=== PATIENT | male | born 1955 | race Two or more races ===

== ENCOUNTER 2017-04-09 12:21 | Inpatient (IN) | payer OTHER ==
[2017-04-09 13:51] VITALS: BMI 25.0
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
[2017-04-09] MEDS ORDERED: MENTHOL/PHENOL 1 EACH UD MM PRN (18:56)
[2017-04-09] MEDS ORDERED: MAGNESIUM HYDROX 2400MG/30ML ORAL SUSPENSION 30 ML CUP PO PRN (18:56)
[2017-04-09] MEDS ORDERED: diphenhydrAMINE HCL 50 MG CAPSULE PO PRN (18:56)
[2017-04-09] MEDS ORDERED: guaiFENesin/D-METHORPHAN HB 10 ML UNIT-DOSE CUPS PO PRN (18:56)
[2017-04-09] MEDS ORDERED: chlordiazePOXIDE HCL 25 MG CAPSULE PO PRN (18:56)
[2017-04-09] MEDS ORDERED: MAG HYDROX/AL HYDROX/SIMETH 30 ML UNIT-DOSE CUP PO PRN (18:56)
[2017-04-09] MEDS ORDERED: NICOTINE POLACRILEX 2 MG GUM BC PRN (18:56)
[2017-04-09] MEDS ORDERED: MAGNESIUM CITRATE 300 ML BOTTLE PO PRN (18:56)
[2017-04-09] MEDS ORDERED: P-EPHED 60MG/TRIPROLIDI 2.5MG TABLET PO PRN (18:56)
[2017-04-09] MEDS ORDERED: hydrOXYzine PAMOATE 50 MG CAPSULE (FP) PO PRN (18:56)
[2017-04-09] MEDS ORDERED: LOPERAMIDE HCL 2 MG CAPSULE PO PRN (18:56)
[2017-04-09] MEDS ORDERED: chlordiazePOXIDE HCL 25 MG CAPSULE PO ONE (18:56)
[2017-04-09] MEDS ORDERED: IBUPROFEN 400 MG TABLET (FP) PO PRN (18:56)
[2017-04-09] MEDS ORDERED: ACETAMINOPHEN 325 MG TABLET (FP) PO PRN (18:56)
[2017-04-09] MEDS ORDERED: ALBUTEROL SO4 18 GM HFA INHALER IH PRN (19:00)
[2017-04-09] MEDS ORDERED: TETRAHYDROZOLINE HCL 1 DROP DROPS OU PRN (19:01)
[2017-04-09] MEDS: NICOTINE 14 MG/24 HOURS TOPICAL PATCH TD SCH (20:05)
[2017-04-09] MEDS: chlordiazePOXIDE HCL 25 MG CAPSULE PO SCH (22:14)
[2017-04-09] MEDS: BACITRACIN 0.9 GM PACKET TP SCH (22:14)
[2017-04-09] MEDS: THIAMINE HCL 100 MG TABLET (FP) PO SCH (22:14)
[2017-04-10 00:05] LABS: URINE APPEARANCE SLCLOUDY; URINE BILIRUBIN NEGATIVE (NEGATIVE); URINE BLOOD NEGATIVE (NEGATIVE); URINE COLOR YELLOW; URINE GLUCOSE (UA) NEGATIVE (NEGATIVE); URINE KETONE NEGATIVE (NEGATIVE); URINE NITRITE NEGATIVE (NEGATIVE); URINE PROTEIN NEGATIVE (NEGATIVE); URINE UROBILINOGEN NEGATIVE mg/dL (0.2-1.0)
[2017-04-10] MEDS: chlordiazePOXIDE HCL 25 MG CAPSULE PO SCH ×4 (05:42→22:25)
[2017-04-10] MEDS: PRENATAL VITAMINS W/ FOLIC ACID TABLET (FP) PO SCH (10:15)
[2017-04-10] MEDS: BACITRACIN 0.9 GM PACKET TP SCH ×2 (10:15→22:25)
[2017-04-10] MEDS: NICOTINE 14 MG/24 HOURS TOPICAL PATCH TD SCH (10:17)
[2017-04-10 10:21] LABS: MCH 30.1 pg (25.7-33.7); MCHC 32.9 g/dl (32.0-35.9); MEAN CELL VOLUME 91.3 fl (80-96); MEAN PLT VOLUME 8.8 fl (7.5-11.1); PLATELET COUNT 158 K/MM3 (134-434); RDW 14.8 % (11.9-15.9); WHITE BLOOD COUNT 4.5 K/mm3 (4.0-10.0)
[2017-04-10 10:33] LABS: ALBUMIN 2.9 g/dl (3.4-5.0); ANION GAP 7 (8-16); CALCIUM 8.3 mg/dL (8.5-10.1); CO2 29 mmol/L (21-32); GLUCOSE,RANDOM 92 mg/dL (74-106); SGPT/ALT 28 U/L (12-78)
[2017-04-10 10:35] LABS: ALK PHOS 60 U/L (45-117); BILIRUBIN,TOTAL 0.4 mg/dL (0.2-1.0); SGOT/AST 24 U/L (15-37); TOT PROT 6.1 g/dl (6.4-8.2)
[2017-04-10 11:50] LABS: URINE LEUK ESTERASE Negative (NEGATIVE)
[2017-04-10] MEDS ORDERED: FLU VACCINE QUAD 60 MCG/0.5 ML (MDV 17-18) IM ONE (12:00)
[2017-04-10 12:38] LABS: HIV 1 & 2 AB NEGATIVE; HIV 1 AGp24 NEGATIVE
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
--- NOTE | 2017-04-10 14:53 | PN ---
[facility] CIWA - CIWA Score Nausea/Vomitin-No Nausea/No Vomiting Muscle Tremors: 3 Anxiety: 5 Agitation: 4-Moderately Restless Paroxysmal Sweats: No Perspiration Orientation: 0-Oriented Tacttile Disturbances: 3-Moderate Itch/Numb/Burn Auditory Disturbances: 2-Mild Harshness/Frighten Visual Disturbances: 0-None Headache: 0-None Present CIWA-Ar Total Score: 17 BHS Progress Note (SOAP) Subjective: Anxious, Interrupted sleep, Tremors. Objective: PT. A & O X 3, OBSERVED AMBULATING ON UNIT. NO ACUTE DISTRESS. PT. DENIES CHEST PAIN. 04/10/17 14:52 Vital Signs Temperature 98.4 F 04/10/17 09:30 Pulse Rate 111 H 04/10/17 09:30 Respiratory Rate 18 04/10/17 09:30 Blood Pressure 144/92 04/10/17 09:30 O2 Sat by Pulse Oximetry (%) Laboratory Tests 04/09/17 04/10/17 04/10/17 23:20 08:00 08:00 WBC 4.5 RBC 4.61 Hgb 13.9 Hct 42.1 MCV 91.3 MCH 30.1 MCHC 32.9 RDW 14.8 Plt Count 158 MPV 8.8 Sodium Potassium Chloride Carbon Dioxide Anion Gap BUN Creatinine Creat Clearance w eGFR Random Glucose Calcium Total Bilirubin AST ALT Alkaline Phosphatase Total Protein Albumin Urine Color Yellow Urine Appearance Slcloudy Urine pH 5.0 Ur Specific [place] 1.025 Urine Protein Negative Urine Glucose (UA) Negative Urine Ketones Negative Urine Blood Negative Urine Nitrite Negative Urine Bilirubin Negative Urine Urobilinogen Negative Ur Leukocyte Esterase Negative RPR Titer HIV 1&2 Antibody Screen Negative HIV P24 Antigen Negative 04/10/17 04/10/17 08:00 08:00 WBC RBC Hgb Hct MCV MCH MCHC RDW Plt Count MPV Sodium 144 Potassium 3.6 Chloride 108 H Carbon Dioxide 29 Anion Gap 7 L BUN 9 Creatinine 1.0 Creat Clearance w eGFR > 60 Random Glucose 92 Calcium 8.3 L Total Bilirubin 0.4 AST 24 ALT 28 Alkaline Phosphatase 60 Total Protein 6.1 L Albumin 2.9 L Urine Color Urine Appearance Urine pH Ur Specific [place] Urine Protein Urine Glucose (UA) Urine Ketones Urine Blood Urine Nitrite Urine Bilirubin Urine Urobilinogen Ur Leukocyte Esterase RPR Titer Nonreactive HIV 1&2 Antibody Screen HIV P24 Antigen LABS NOTED. HCV AB RESULT PENDING. 04/10/17 14:53 Assessment: 04/10/17 14:52 WITHDRAWAL SYMPTOMS. Plan: CONTINUE DETOX.
--- NOTE | 2017-04-10 19:52 | EKG ---
Test Reason : Blood Pressure : / mmHG Vent. Rate : 059 BPM Atrial Rate : 059 BPM P-R Int : 128 ms QRS Dur : 080 ms QT Int : 438 ms P-R-T Axes : 035 029 038 degrees QTc Int : 433 ms SINUS BRADYCARDIA MINIMAL VOLTAGE CRITERIA FOR LVH, MAY BE NORMAL VARIANT SEPTAL INFARCT , AGE UNDETERMINED ABNORMAL ECG NO PREVIOUS ECGS AVAILABLE REPEAT EKG IF CLINICALLY INDICATED Confirmed by KARMEN APPIAH MD ([id number]) on 04/10/2017 7:52:03 PM Referred By: Confirmed By:KARMEN APPIAH MD
[2017-04-10] MEDS: THIAMINE HCL 100 MG TABLET (FP) PO SCH (22:28)
[2017-04-11] MEDS: chlordiazePOXIDE HCL 25 MG CAPSULE PO SCH ×3 (05:31→17:32)
[2017-04-11] MEDS: PRENATAL VITAMINS W/ FOLIC ACID TABLET (FP) PO SCH (10:11)
[2017-04-11] MEDS: BACITRACIN 0.9 GM PACKET TP SCH ×2 (10:12→22:10)
[2017-04-11] MEDS: NICOTINE 14 MG/24 HOURS TOPICAL PATCH TD SCH (10:12)
--- NOTE | 2017-04-11 16:44 | PN ---
[facility] CIWA - CIWA Score Nausea/Vomitin-No Nausea/No Vomiting Muscle Tremors: 3 Anxiety: 4-Mod. Anxious/Guarded Agitation: 3 Paroxysmal Sweats: 3 Orientation: 0-Oriented Tacttile Disturbances: 0-None Auditory Disturbances: 0-None Visual Disturbances: 0-None Headache: 0-None Present CIWA-Ar Total Score: 13 S Progress Note (SOAP) Subjective: anxiety,tremors,sweating,interrupted sleep,restless. Objective: 04/11/17 16:43 Vital Signs - 8 hr 04/11/17 04/11/17 09:16 13:15 Temperature 95.8 F L 97.8 F Pulse Rate 92 H 57 L Respiratory 20 18 Rate Blood Pressure 130/72 136/83 Laboratory Last Values WBC 4.5 K/mm3 (4.0-10.0) 04/10/17 08:00 RBC 4.61 M/mm3 (4.00-5.60) 04/10/17 08:00 Hgb 13.9 GM/dL (11.7-16.9) 04/10/17 08:00 Hct 42.1 % (35.4-49) 04/10/17 08:00 MCV 91.3 fl (80-96) 04/10/17 08:00 MCH 30.1 pg (25.7-33.7) 04/10/17 08:00 MCHC 32.9 g/dl (32.0-35.9) 04/10/17 08:00 RDW 14.8 % (11.9-15.9) 04/10/17 08:00 Plt Count 158 K/MM3 (134-434) 04/10/17 08:00 MPV 8.8 fl (7.5-11.1) 04/10/17 08:00 Sodium 144 mmol/L (136-145) 04/10/17 08:00 Potassium 3.6 mmol/L (3.5-5.1) 04/10/17 08:00 Chloride 108 mmol/L (98-107) H 04/10/17 08:00 Carbon Dioxide 29 mmol/L (21-32) 04/10/17 08:00 Anion Gap 7 (8-16) L 04/10/17 08:00 BUN 9 mg/dL (7-18) 04/10/17 08:00 Creatinine 1.0 mg/dL (0.7-1.3) 04/10/17 08:00 Creat Clearance w eGFR > 60 (>60) 04/10/17 08:00 Random Glucose 92 mg/dL (74-106) 04/10/17 08:00 Calcium 8.3 mg/dL (8.5-10.1) L 04/10/17 08:00 Total Bilirubin 0.4 mg/dL (0.2-1.0) 04/10/17 08:00 AST 24 U/L (15-37) 04/10/17 08:00 ALT 28 U/L (12-78) 04/10/17 08:00 Alkaline Phosphatase 60 U/L (45-117) 04/10/17 08:00 Total Protein 6.1 g/dl (6.4-8.2) L 04/10/17 08:00 Albumin 2.9 g/dl (3.4-5.0) L 04/10/17 08:00 Urine Color Yellow 04/09/17 23:20 Urine Appearance Slcloudy 04/09/17 23:20 Urine pH 5.0 (5.0-8.0) 04/09/17 23:20 Ur Specific [place] 1.025 (1.005-1.025) 04/09/17 23:20 Urine Protein Negative (NEGATIVE) 04/09/17 23:20 Urine Glucose (UA) Negative (NEGATIVE) 04/09/17 23:20 Urine Ketones Negative (NEGATIVE) 04/09/17 23:20 Urine Blood Negative (NEGATIVE) 04/09/17 23:20 Urine Nitrite Negative (NEGATIVE) 04/09/17 23:20 Urine Bilirubin Negative (NEGATIVE) 04/09/17 23:20 Urine Urobilinogen Negative mg/dL (0.2-1.0) 04/09/17 23:20 Ur Leukocyte Esterase Negative (NEGATIVE) 04/09/17 23:20 RPR Titer Nonreactive (NONREACTIVE) 04/10/17 08:00 Hepatitis C Antibody <0.1 s/co ratio (0.0-0.9) 04/10/17 08:00 HIV 1&2 Antibody Screen Negative 04/10/17 08:00 HIV P24 Antigen Negative 04/10/17 08:00 labs noted Assessment: 04/11/17 16:43 Withdrawal sx. Plan: Continue detox
[2017-04-11] MEDS: THIAMINE HCL 100 MG TABLET (FP) PO SCH (22:10)
[2017-04-11] MEDS: chlordiazePOXIDE 5 MG CAPSULE PO SCH (22:10)
[2017-04-12] MEDS: chlordiazePOXIDE 5 MG CAPSULE PO SCH ×3 (05:55→17:31)
--- NOTE | 2017-04-12 09:58 | PN ---
BHS Progress Note (SOAP) Subjective: nausea, sweats, interrupted sleep, anxiety, tremors Objective: 04/12/17 09:57 Vital Signs - 24 hr 04/11/17 04/11/17 04/11/17 13:15 17:35 21:46 Temperature 97.8 F 98.5 F Pulse Rate 57 L 82 87 Respiratory 18 16 20 Rate Blood Pressure 136/83 150/90 114/72 04/12/17 04/12/17 04/12/17 00:52 03:30 06:18 Temperature 97.2 F L Pulse Rate 99 H Respiratory 18 18 8 L Rate Blood Pressure 135/83 Vital Signs - 24 hr 04/11/17 04/11/17 04/11/17 13:15 17:35 21:46 Temperature 97.8 F 98.5 F Pulse Rate 57 L 82 87 Respiratory 18 16 20 Rate Blood Pressure 136/83 150/90 114/72 04/12/17 04/12/17 04/12/17 00:52 03:30 06:18 Temperature 97.2 F L Pulse Rate 99 H Respiratory 18 18 8 L Rate Blood Pressure 135/83 Laboratory Tests 04/09/17 04/10/17 04/10/17 23:20 08:00 08:00 WBC 4.5 RBC 4.61 Hgb 13.9 Hct 42.1 MCV 91.3 MCH 30.1 MCHC 32.9 RDW 14.8 Plt Count 158 MPV 8.8 Sodium Potassium Chloride Carbon Dioxide Anion Gap BUN Creatinine Creat Clearance w eGFR Random Glucose Calcium Total Bilirubin AST ALT Alkaline Phosphatase Total Protein Albumin Urine Color Yellow Urine Appearance Slcloudy Urine pH 5.0 Ur Specific [place] 1.025 Urine Protein Negative Urine Glucose (UA) Negative Urine Ketones Negative Urine Blood Negative Urine Nitrite Negative Urine Bilirubin Negative Urine Urobilinogen Negative Ur Leukocyte Esterase Negative RPR Titer Hepatitis C Antibody HIV 1&2 Antibody Screen Negative HIV P24 Antigen Negative 04/10/17 04/10/17 04/10/17 08:00 08:00 08:00 WBC RBC Hgb Hct MCV MCH MCHC RDW Plt Count MPV Sodium 144 Potassium 3.6 Chloride 108 H Carbon Dioxide 29 Anion Gap 7 L BUN 9 Creatinine 1.0 Creat Clearance w eGFR > 60 Random Glucose 92 Calcium 8.3 L Total Bilirubin 0.4 AST 24 ALT 28 Alkaline Phosphatase 60 Total Protein 6.1 L Albumin 2.9 L Urine Color Urine Appearance Urine pH Ur Specific [place] Urine Protein Urine Glucose (UA) Urine Ketones Urine Blood Urine Nitrite Urine Bilirubin Urine Urobilinogen Ur Leukocyte Esterase RPR Titer Nonreactive Hepatitis C Antibody <0.1 HIV 1&2 Antibody Screen HIV P24 Antigen Assessment: 04/12/17 09:57 withdrawal sx Plan: cont detox, fluids, encourage ambulation
[2017-04-12] MEDS: PRENATAL VITAMINS W/ FOLIC ACID TABLET (FP) PO SCH (10:05)
[2017-04-12] MEDS: BACITRACIN 0.9 GM PACKET TP SCH ×2 (10:07→22:09)
[2017-04-12] MEDS: NICOTINE 14 MG/24 HOURS TOPICAL PATCH TD SCH (10:07)
[2017-04-12] MEDS: THIAMINE HCL 100 MG TABLET (FP) PO SCH (22:09)
[2017-04-12] MEDS: chlordiazePOXIDE HCL 10 MG CAPSULE PO SCH (22:09)
[2017-04-13] MEDS: chlordiazePOXIDE HCL 10 MG CAPSULE PO SCH ×2 (06:05→10:32)
[2017-04-13 09:54] VITALS: BP 130/72; PULSE 67; TEMP 96.8
--- NOTE | 2017-04-13 10:18 | DS ---
[facility] Detox Discharge Summary Admission Date: 04/09/17 Discharge Date: 04/13/17 - History Present History: Alcohol Dependence, Cocaine Dependence Additional Comments: PT COMPLETED DETOX. ALERT O X 3. NAD. Pertinent Past History: HTN HX HSV INFECTION - Physical Exam Results Vital Signs: Vital Signs Temperature 96.8 F L 04/13/17 09:52 Pulse Rate 67 04/13/17 09:52 Respiratory Rate 18 04/13/17 09:52 Blood Pressure 130/72 04/13/17 09:52 O2 Sat by Pulse Oximetry (%) Pertinent Admission Physical Exam Findings: WITHDRAWAL SX Laboratory Last Values WBC 4.5 K/mm3 (4.0-10.0) 04/10/17 08:00 RBC 4.61 M/mm3 (4.00-5.60) 04/10/17 08:00 Hgb 13.9 GM/dL (11.7-16.9) 04/10/17 08:00 Hct 42.1 % (35.4-49) 04/10/17 08:00 MCV 91.3 fl (80-96) 04/10/17 08:00 MCH 30.1 pg (25.7-33.7) 04/10/17 08:00 MCHC 32.9 g/dl (32.0-35.9) 04/10/17 08:00 RDW 14.8 % (11.9-15.9) 04/10/17 08:00 Plt Count 158 K/MM3 (134-434) 04/10/17 08:00 MPV 8.8 fl (7.5-11.1) 04/10/17 08:00 Sodium 144 mmol/L (136-145) 04/10/17 08:00 Potassium 3.6 mmol/L (3.5-5.1) 04/10/17 08:00 Chloride 108 mmol/L (98-107) H 04/10/17 08:00 Carbon Dioxide 29 mmol/L (21-32) 04/10/17 08:00 Anion Gap 7 (8-16) L 04/10/17 08:00 BUN 9 mg/dL (7-18) 04/10/17 08:00 Creatinine 1.0 mg/dL (0.7-1.3) 04/10/17 08:00 Creat Clearance w eGFR > 60 (>60) 04/10/17 08:00 Random Glucose 92 mg/dL (74-106) 04/10/17 08:00 Calcium 8.3 mg/dL (8.5-10.1) L 04/10/17 08:00 Total Bilirubin 0.4 mg/dL (0.2-1.0) 04/10/17 08:00 AST 24 U/L (15-37) 04/10/17 08:00 ALT 28 U/L (12-78) 04/10/17 08:00 Alkaline Phosphatase 60 U/L (45-117) 04/10/17 08:00 Total Protein 6.1 g/dl (6.4-8.2) L 04/10/17 08:00 Albumin 2.9 g/dl (3.4-5.0) L 04/10/17 08:00 Urine Color Yellow 04/09/17 23:20 Urine Appearance Slcloudy 04/09/17 23:20 Urine pH 5.0 (5.0-8.0) 04/09/17 23:20 Ur Specific [place] 1.025 (1.005-1.025) 04/09/17 23:20 Urine Protein Negative (NEGATIVE) 04/09/17 23:20 Urine Glucose (UA) Negative (NEGATIVE) 04/09/17 23:20 Urine Ketones Negative (NEGATIVE) 04/09/17 23:20 Urine Blood Negative (NEGATIVE) 04/09/17 23:20 Urine Nitrite Negative (NEGATIVE) 04/09/17 23:20 Urine Bilirubin Negative (NEGATIVE) 04/09/17 23:20 Urine Urobilinogen Negative mg/dL (0.2-1.0) 04/09/17 23:20 Ur Leukocyte Esterase Negative (NEGATIVE) 04/09/17 23:20 RPR Titer Nonreactive (NONREACTIVE) 04/10/17 08:00 Hepatitis C Antibody <0.1 s/co ratio (0.0-0.9) 04/10/17 08:00 HIV 1&2 Antibody Screen Negative 04/10/17 08:00 HIV P24 Antigen Negative 04/10/17 08:00 - Treatment Hospital Course: Detox Protocol Followed, Detoxed Safely, Responded well, Discharged Condition Good, Rehab Referral Accepted Patient has Accepted a Rehab Referral to: [facility] - Medication Discharge Medications: Ambulatory Orders Valacyclovir HCl [Valtrex -] 500 mg PO BID 04/09/17 - AMA Did Patient Leave Against Medical Advice: No
[2017-04-13] MEDS: NICOTINE 14 MG/24 HOURS TOPICAL PATCH TD SCH (10:32)
[2017-04-13] MEDS: PRENATAL VITAMINS W/ FOLIC ACID TABLET (FP) PO SCH (10:32)
[2017-04-13] MEDS: BACITRACIN 0.9 GM PACKET TP SCH (10:32)
== END 2017-04-13 13:26 | disposition other institution (70) | DRG 774 ==
LOC: YASAS 12:21 → Y3N 16:52
PROVIDERS: ADMIT Internal Medicine; ATTEND Internal Medicine
PROC: HZ2ZZZZ Detoxification Services for Substance Abuse Treatment (ICD-10-PCS; principal; 2017-04-09)
DX: F10.230 Alcohol dependence with withdrawal, uncomplicated (principal); F14.20 Cocaine dependence, uncomplicated; F17.210 Nicotine dependence, cigarettes, uncomplicated; F19.24 Other psychoactive substance dependence with psychoactive substance-induced mood disorder; F43.10 Post-traumatic stress disorder, unspecified; J44.9 Chronic obstructive pulmonary disease, unspecified; I10 Essential (primary) hypertension; B00.1 Herpesviral vesicular dermatitis; D57.3 Sickle-cell trait; Z91.14 Patient's other noncompliance with medication regimen; B18.2 Chronic viral hepatitis C
CPT/HCPCS: 36415; 80053; 81003; 85027; 86593; 86803; 87389; 93005; 93010

== ENCOUNTER 2017-04-13 12:28 | Inpatient (IN) | payer OTHER ==
[2017-04-13] MEDS ORDERED: hydrOXYzine PAMOATE 50 MG CAPSULE (FP) PO PRN (14:44)
[2017-04-13] MEDS ORDERED: guaiFENesin/D-METHORPHAN HB 10 ML UNIT-DOSE CUPS PO PRN (14:44)
[2017-04-13] MEDS ORDERED: LOPERAMIDE HCL 2 MG CAPSULE PO PRN (14:44)
[2017-04-13] MEDS ORDERED: MAGNESIUM CITRATE 300 ML BOTTLE PO PRN (14:44)
[2017-04-13] MEDS ORDERED: NICOTINE POLACRILEX 2 MG GUM BUC PRN (14:44)
[2017-04-13] MEDS ORDERED: MENTHOL/PHENOL 1 EACH UD MM PRN (14:44)
[2017-04-13] MEDS ORDERED: P-EPHED 60MG/TRIPROLIDI 2.5MG TABLET PO PRN (14:44)
[2017-04-13] MEDS ORDERED: MAG HYDROX/AL HYDROX/SIMETH 30 ML UNIT-DOSE CUP PO PRN (14:44)
[2017-04-13] MEDS ORDERED: MAGNESIUM HYDROX 2400MG/30ML ORAL SUSPENSION 30 ML CUP PO PRN (14:44)
--- NOTE | 2017-04-13 14:49 | HP ---
[facility] Rehab Assess/Revision - Admission History Admitted to Rehab from: [facility] [place] Date of Admission to Rehab: 04/13/2017 - Vital signs Vital Signs: Vital Signs Period Temp Pulse Resp BP Sys/Mccarthy Pulse Ox Last 24 Hr 97.8 F 60 18 124/77 - Findings Detox History & Physical reviewed: Yes Concur with findings: Yes Inpatient Rehab Admission - Initial Determination Are CD services needed?: Yes Free of communicable disease: Yes Not in need of hospitalization: Yes - Rehab Admission Criteria Comorbidities: Yes Patient is meeting Inpatient Rehab admission criteria:: Yes
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
[2017-04-13] MEDS: valACYclovir HCL 500 MG TABLET (FP) PO SCH (21:42)
[2017-04-13] MEDS: THIAMINE HCL 100 MG TABLET (FP) PO SCH (21:42)
[2017-04-13] MEDS: traZODone HCL 50 MG TABLET (FP) PO SCH (21:42)
[2017-04-13] MEDS: BENZTROPINE MESYLATE 1 MG TABLET (FP) PO SCH (21:42)
[2017-04-13] MEDS: risperiDONE 1 MG TABLET (FP) PO SCH (21:42)
[2017-04-13] MEDS: diphenhydrAMINE HCL 50 MG CAPSULE PO PRN (21:42)
[2017-04-14] MEDS: valACYclovir HCL 500 MG TABLET (FP) PO SCH ×2 (10:31→21:24)
[2017-04-14] MEDS: PRENATAL VITAMINS W/ FOLIC ACID TABLET (FP) PO SCH (10:31)
[2017-04-14] MEDS: BENZTROPINE MESYLATE 1 MG TABLET (FP) PO SCH ×2 (10:31→21:23)
[2017-04-14] MEDS: risperiDONE 1 MG TABLET (FP) PO SCH ×2 (10:31→21:23)
[2017-04-14] MEDS: NICOTINE 14 MG/24 HOURS TOPICAL PATCH TD SCH (10:32)
[2017-04-14] MEDS: traZODone HCL 50 MG TABLET (FP) PO SCH (21:23)
[2017-04-14] MEDS: THIAMINE HCL 100 MG TABLET (FP) PO SCH (21:24)
[2017-04-15] MEDS: NICOTINE 14 MG/24 HOURS TOPICAL PATCH TD SCH (10:17)
[2017-04-15] MEDS: BENZTROPINE MESYLATE 1 MG TABLET (FP) PO SCH ×2 (10:17→21:23)
[2017-04-15] MEDS: risperiDONE 1 MG TABLET (FP) PO SCH ×2 (10:17→21:23)
[2017-04-15] MEDS: PRENATAL VITAMINS W/ FOLIC ACID TABLET (FP) PO SCH (10:17)
[2017-04-15] MEDS: valACYclovir HCL 500 MG TABLET (FP) PO SCH ×2 (10:17→21:24)
[2017-04-15] MEDS: THIAMINE HCL 100 MG TABLET (FP) PO SCH (21:23)
[2017-04-15] MEDS: traZODone HCL 50 MG TABLET (FP) PO SCH (21:23)
[2017-04-16] MEDS: NICOTINE 14 MG/24 HOURS TOPICAL PATCH TD SCH (10:15)
[2017-04-16] MEDS: valACYclovir HCL 500 MG TABLET (FP) PO SCH ×2 (10:15→21:32)
[2017-04-16] MEDS: risperiDONE 1 MG TABLET (FP) PO SCH ×2 (10:15→21:32)
[2017-04-16] MEDS: BENZTROPINE MESYLATE 1 MG TABLET (FP) PO SCH ×2 (10:15→21:32)
[2017-04-16] MEDS: PRENATAL VITAMINS W/ FOLIC ACID TABLET (FP) PO SCH (10:15)
[2017-04-16] MEDS: ACETAMINOPHEN 325 MG TABLET (FP) PO PRN (14:20)
[2017-04-16] MEDS: THIAMINE HCL 100 MG TABLET (FP) PO SCH (21:32)
[2017-04-16] MEDS: traZODone HCL 50 MG TABLET (FP) PO SCH (21:32)
[2017-04-16] MEDS: diphenhydrAMINE HCL 50 MG CAPSULE PO PRN (21:33)
[2017-04-17] MEDS: PRENATAL VITAMINS W/ FOLIC ACID TABLET (FP) PO SCH (10:40)
[2017-04-17] MEDS: BENZTROPINE MESYLATE 1 MG TABLET (FP) PO SCH ×2 (10:40→21:28)
[2017-04-17] MEDS: risperiDONE 1 MG TABLET (FP) PO SCH ×2 (10:40→21:28)
[2017-04-17] MEDS: NICOTINE 14 MG/24 HOURS TOPICAL PATCH TD SCH (10:40)
[2017-04-17] MEDS: valACYclovir HCL 500 MG TABLET (FP) PO SCH ×2 (10:40→21:28)
[2017-04-17] MEDS: traZODone HCL 50 MG TABLET (FP) PO SCH (21:28)
[2017-04-17] MEDS: THIAMINE HCL 100 MG TABLET (FP) PO SCH (21:28)
[2017-04-18] MEDS: risperiDONE 1 MG TABLET (FP) PO SCH ×2 (10:18→21:26)
[2017-04-18] MEDS: BENZTROPINE MESYLATE 1 MG TABLET (FP) PO SCH ×2 (10:18→21:26)
[2017-04-18] MEDS: PRENATAL VITAMINS W/ FOLIC ACID TABLET (FP) PO SCH (10:18)
[2017-04-18] MEDS: valACYclovir HCL 500 MG TABLET (FP) PO SCH ×2 (10:18→21:26)
[2017-04-18] MEDS: NICOTINE 14 MG/24 HOURS TOPICAL PATCH TD SCH (10:19)
[2017-04-18] MEDS: diphenhydrAMINE HCL 50 MG CAPSULE PO PRN (21:26)
[2017-04-18] MEDS: traZODone HCL 50 MG TABLET (FP) PO SCH (21:26)
[2017-04-18] MEDS: THIAMINE HCL 100 MG TABLET (FP) PO SCH (21:26)
[2017-04-19] MEDS: risperiDONE 1 MG TABLET (FP) PO SCH ×2 (10:05→21:34)
[2017-04-19] MEDS: PRENATAL VITAMINS W/ FOLIC ACID TABLET (FP) PO SCH (10:05)
[2017-04-19] MEDS: valACYclovir HCL 500 MG TABLET (FP) PO SCH ×2 (10:05→23:28)
[2017-04-19] MEDS: BENZTROPINE MESYLATE 1 MG TABLET (FP) PO SCH ×2 (10:05→21:34)
[2017-04-19] MEDS: NICOTINE 14 MG/24 HOURS TOPICAL PATCH TD SCH (10:05)
[2017-04-19] MEDS: THIAMINE HCL 100 MG TABLET (FP) PO SCH (21:34)
[2017-04-19] MEDS: traZODone HCL 50 MG TABLET (FP) PO SCH (21:36)
[2017-04-20] MEDS: ACETAMINOPHEN 325 MG TABLET (FP) PO PRN (06:54)
[2017-04-20] MEDS: NICOTINE 14 MG/24 HOURS TOPICAL PATCH TD SCH (09:46)
[2017-04-20] MEDS: risperiDONE 1 MG TABLET (FP) PO SCH ×2 (09:46→21:22)
[2017-04-20] MEDS: PRENATAL VITAMINS W/ FOLIC ACID TABLET (FP) PO SCH (09:46)
[2017-04-20] MEDS: valACYclovir HCL 500 MG TABLET (FP) PO SCH ×2 (09:46→21:22)
[2017-04-20] MEDS: BENZTROPINE MESYLATE 1 MG TABLET (FP) PO SCH ×2 (09:46→21:22)
[2017-04-20] MEDS: THIAMINE HCL 100 MG TABLET (FP) PO SCH (21:21)
[2017-04-20] MEDS: diphenhydrAMINE HCL 50 MG CAPSULE PO PRN (21:22)
[2017-04-20] MEDS: traZODone HCL 50 MG TABLET (FP) PO SCH (21:22)
[2017-04-21] MEDS: ACETAMINOPHEN 325 MG TABLET (FP) PO PRN (06:23)
[2017-04-21] MEDS: NICOTINE 14 MG/24 HOURS TOPICAL PATCH TD SCH (10:17)
[2017-04-21] MEDS: BENZTROPINE MESYLATE 1 MG TABLET (FP) PO SCH ×2 (10:17→21:24)
[2017-04-21] MEDS: valACYclovir HCL 500 MG TABLET (FP) PO SCH ×2 (10:17→21:24)
[2017-04-21] MEDS: PRENATAL VITAMINS W/ FOLIC ACID TABLET (FP) PO SCH (10:17)
[2017-04-21] MEDS: risperiDONE 1 MG TABLET (FP) PO SCH ×2 (10:17→21:24)
[2017-04-21] MEDS: IBUPROFEN 400 MG TABLET (FP) PO PRN (10:18)
[2017-04-21] MEDS: diphenhydrAMINE HCL 50 MG CAPSULE PO PRN (21:24)
[2017-04-21] MEDS: traZODone HCL 50 MG TABLET (FP) PO SCH (21:24)
[2017-04-21] MEDS: THIAMINE HCL 100 MG TABLET (FP) PO SCH (21:24)
[2017-04-22] MEDS: risperiDONE 1 MG TABLET (FP) PO SCH ×2 (09:51→21:33)
[2017-04-22] MEDS: PRENATAL VITAMINS W/ FOLIC ACID TABLET (FP) PO SCH (09:51)
[2017-04-22] MEDS: NICOTINE 14 MG/24 HOURS TOPICAL PATCH TD SCH (09:51)
[2017-04-22] MEDS: valACYclovir HCL 500 MG TABLET (FP) PO SCH ×2 (09:51→21:33)
[2017-04-22] MEDS: BENZTROPINE MESYLATE 1 MG TABLET (FP) PO SCH ×2 (09:51→21:33)
[2017-04-22] MEDS: ACETAMINOPHEN 325 MG TABLET (FP) PO PRN (14:10)
[2017-04-22] MEDS: THIAMINE HCL 100 MG TABLET (FP) PO SCH (21:33)
[2017-04-22] MEDS: traZODone HCL 50 MG TABLET (FP) PO SCH (21:33)
[2017-04-23] MEDS: valACYclovir HCL 500 MG TABLET (FP) PO SCH (10:24)
[2017-04-23] MEDS: BENZTROPINE MESYLATE 1 MG TABLET (FP) PO SCH ×2 (10:24→21:36)
[2017-04-23] MEDS: risperiDONE 1 MG TABLET (FP) PO SCH ×2 (10:24→21:36)
[2017-04-23] MEDS: PRENATAL VITAMINS W/ FOLIC ACID TABLET (FP) PO SCH (10:24)
[2017-04-23] MEDS: NICOTINE 14 MG/24 HOURS TOPICAL PATCH TD SCH (10:25)
[2017-04-23] MEDS: IBUPROFEN 400 MG TABLET (FP) PO PRN (14:22)
[2017-04-23] MEDS: traZODone HCL 50 MG TABLET (FP) PO SCH (21:36)
[2017-04-23] MEDS: THIAMINE HCL 100 MG TABLET (FP) PO SCH (21:36)
[2017-04-24] MEDS: NICOTINE 14 MG/24 HOURS TOPICAL PATCH TD SCH (09:57)
[2017-04-24] MEDS: risperiDONE 1 MG TABLET (FP) PO SCH ×2 (09:57→21:24)
[2017-04-24] MEDS: PRENATAL VITAMINS W/ FOLIC ACID TABLET (FP) PO SCH (09:57)
[2017-04-24] MEDS: BENZTROPINE MESYLATE 1 MG TABLET (FP) PO SCH ×2 (09:57→21:24)
[2017-04-24] MEDS: traZODone HCL 50 MG TABLET (FP) PO SCH (21:24)
[2017-04-24] MEDS: THIAMINE HCL 100 MG TABLET (FP) PO SCH (21:24)
[2017-04-24] MEDS: diphenhydrAMINE HCL 50 MG CAPSULE PO PRN (21:25)
[2017-04-25] MEDS: NICOTINE 14 MG/24 HOURS TOPICAL PATCH TD SCH (10:21)
[2017-04-25] MEDS: BENZTROPINE MESYLATE 1 MG TABLET (FP) PO SCH ×2 (10:21→21:30)
[2017-04-25] MEDS: PRENATAL VITAMINS W/ FOLIC ACID TABLET (FP) PO SCH (10:22)
[2017-04-25] MEDS: risperiDONE 1 MG TABLET (FP) PO SCH ×2 (10:22→21:31)
[2017-04-25] MEDS: THIAMINE HCL 100 MG TABLET (FP) PO SCH (21:31)
[2017-04-25] MEDS: traZODone HCL 50 MG TABLET (FP) PO SCH (21:31)
[2017-04-25] MEDS: diphenhydrAMINE HCL 50 MG CAPSULE PO PRN (21:31)
[2017-04-26] MEDS: PRENATAL VITAMINS W/ FOLIC ACID TABLET (FP) PO SCH (10:16)
[2017-04-26] MEDS: risperiDONE 1 MG TABLET (FP) PO SCH ×2 (10:16→21:23)
[2017-04-26] MEDS: BENZTROPINE MESYLATE 1 MG TABLET (FP) PO SCH ×2 (10:16→21:22)
[2017-04-26] MEDS: NICOTINE 14 MG/24 HOURS TOPICAL PATCH TD SCH (10:17)
[2017-04-26] MEDS ORDERED: valACYclovir HCL 500 MG TABLET (FP) PO ONE (11:27)
[2017-04-26] MEDS: valACYclovir HCL 500 MG TABLET (FP) PO SCH ×2 (14:21→21:23)
[2017-04-26] MEDS: THIAMINE HCL 100 MG TABLET (FP) PO SCH (21:22)
[2017-04-26] MEDS: traZODone HCL 50 MG TABLET (FP) PO SCH (21:23)
[2017-04-26] MEDS: diphenhydrAMINE HCL 50 MG CAPSULE PO PRN (21:24)
[2017-04-26] MEDS ORDERED: valACYclovir HCL 500 MG TABLET (FP) PO SCH (22:00)
[2017-04-27 06:52] VITALS: BP 112/73; PULSE 55; TEMP 98.1
--- NOTE | 2017-04-27 10:06 | PN ---
Psychiatric Progress Note Vital Signs: Vital Signs Period Temp Pulse Resp BP Sys/Mccarthy Pulse Ox Last 24 Hr 98.1 F 55 18-18 112/73 Date of Session: 04/27/17 Chief Complaint:: discharge visit HPI: Patient has addressed alcohol, cocaine, nicotine dependence comorbid Mood disorder. ROS: HTN medically managed. Current Medications: Active Medications Generic Name Dose Route Start Last Admin Trade Name Freq PRN Reason Stop Dose Admin Acetaminophen 650 mg 04/13/17 14:44 04/22/17 14:10 Tylenol - PO 650 mg Q4H PRN Administration FEVER OR PAIN Al Hydroxide/Mg Hydroxide 30 ml 04/13/17 14:44 Mylanta Oral Suspension - PO Q6H PRN DYSPEPSIA Benztropine Mesylate 1 mg 04/13/17 22:00 04/26/17 21:22 Cogentin - PO 1 mg BID CHRISTINA Administration Diphenhydramine HCl 50 mg 04/13/17 14:44 04/26/17 21:24 Benadryl - PO 50 mg HSMR1 PRN Administration FOR ITCHING Eucalyptus/Menthol/Phenol/Sorbitol 1 each 04/13/17 14:44 Cepastat Lozenge - MM Q4H PRN SORE THROAT Guaifenesin 10 ml 04/13/17 14:44 Robitussin Dm - PO Q6H PRN COUGH Hydroxyzine Pamoate 50 mg 04/13/17 14:44 Vistaril - PO Q4H PRN AGITATION Ibuprofen 400 mg 04/13/17 14:44 04/23/17 14:22 Motrin - PO 400 mg Q6H PRN Administration PAIN Loperamide HCl 4 mg 04/13/17 14:44 Imodium - PO Q6H PRN DIARRHEA Magnesium Hydroxide 30 ml 04/13/17 14:44 Milk Of Magnesia - PO DAILY PRN CONSTIPATION Nicotine 14 mg 04/14/17 10:00 04/26/17 10:17 Nicoderm Patch - TD Not Given DAILY CHRISTINA Nicotine Polacrilex 2 mg 04/13/17 14:44 Nicorette Gum - BUC Q2H PRN NICOTINE REPLACEMENT RX Multivit/Folic Acid/Iron 1 tab 04/14/17 10:00 04/26/17 10:16 Vitamins (Sjr) - PO 1 tab DAILY CHRISTINA Administration Pseudoephedrine/Triprolidine 1 combo 04/13/17 14:44 Actifed - PO TID PRN NASAL CONGESTION Risperidone 1 mg 04/13/17 22:00 04/26/17 21:23 Risperdal - PO 1 mg BID CHRISTINA Administration Thiamine HCl 100 mg 04/13/17 22:00 04/26/17 21:22 Vitamin B1 - PO 100 mg HS CHRISTINA Administration Trazodone HCl 50 mg 04/13/17 22:00 04/26/17 21:23 Desyrel - PO 50 mg HS CHRISTINA Administration Valacyclovir HCl 500 mg 04/26/17 13:45 04/26/17 21:23 Valtrex - PO 500 mg BID CHRISTINA Administration Current Side Effect: No Lab tests ordered: No Lab tests reviewed: Yes Provider note:: Patient has completed today his treatment and met his goals, will contnue to address his issues at [facility] outpatient treatment program. He crenshaw insights into his addiction, understands the negative consequences of his behavior and motivated to continue maintain abstinence. Medications Risperdal, Cogentin and Trazodone well tolerated, scripts provided, patient is stable for discharge today. Total face to face time:: 30 Mental Status Exam - Mental Status Exam Alert and Oriented to: Time, Place, Person Cognitive Function: Good Patient Appearance: Well Groomed Mood: Hopeful Affect: Appropriate, Mood Congruent, Normal Range Patient Behavior: Appropriate, Cooperative Speech Pattern: Clear, Appropriate Voice Loudness: Normal Thought Process: Intact, Goal Oriented Thought Disorder: Not Present Hallucinations: Denies Suicidal Ideation: Denies Homicidal Ideation: Denies Insight/Judgement: Fair Sleep: Fair Appetite: Fair Muscle strength/Tone: Normal Gait/Station: Normal Psychiatric Treatment Plan - Problem List (1) Cocaine dependence Current Visit: No (2) Nicotine dependence Current Visit: No Qualifiers: Nicotine product type: cigarettes Substance use status: uncomplicated Qualified Code(s): F17.210 - Nicotine dependence, cigarettes, uncomplicated; F17.210 - Nicotine dependence, cigarettes, uncomplicated (3) Mood disorder Current Visit: Yes (4) Alcohol dependence Current Visit: Yes
[2017-04-27] MEDS: valACYclovir HCL 500 MG TABLET (FP) PO SCH (10:17)
[2017-04-27] MEDS: PRENATAL VITAMINS W/ FOLIC ACID TABLET (FP) PO SCH (10:17)
[2017-04-27] MEDS: risperiDONE 1 MG TABLET (FP) PO SCH (10:17)
[2017-04-27] MEDS: BENZTROPINE MESYLATE 1 MG TABLET (FP) PO SCH (10:17)
[2017-04-27] MEDS: NICOTINE 14 MG/24 HOURS TOPICAL PATCH TD SCH (10:18)
== END 2017-04-27 10:45 | disposition home or self-care (01) | DRG 772 ==
LOC: YASAS 12:28 → Y5N 12:29
PROVIDERS: ADMIT Psychiatry & Neurology Psychiatry; ATTEND Psychiatry & Neurology Psychiatry
PROC: HZ42ZZZ Group Counseling for Substance Abuse Treatment, Cognitive-Behavioral (ICD-10-PCS; principal; 2017-04-13)
DX: F10.20 Alcohol dependence, uncomplicated (principal); F14.20 Cocaine dependence, uncomplicated; F17.210 Nicotine dependence, cigarettes, uncomplicated; F39 Unspecified mood [affective] disorder; I10 Essential (primary) hypertension; D57.3 Sickle-cell trait
CPT/HCPCS: J2794

== ENCOUNTER 2017-09-26 10:48 | Inpatient (IN) | payer OTHER ==
[2017-09-26 11:19] VITALS: BMI 24.3
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
[2017-09-26] MEDS ORDERED: chlordiazePOXIDE HCL 25 MG CAPSULE PO PRN (13:18)
[2017-09-26] MEDS ORDERED: MAG HYDROX/AL HYDROX/SIMETH 30 ML UNIT-DOSE CUP PO PRN (13:18)
[2017-09-26] MEDS ORDERED: MAGNESIUM HYDROX 2400MG/30ML ORAL SUSPENSION 30 ML CUP PO PRN (13:18)
[2017-09-26] MEDS ORDERED: MAGNESIUM CITRATE 300 ML BOTTLE PO PRN (13:18)
[2017-09-26] MEDS ORDERED: IBUPROFEN 400 MG TABLET (FP) PO PRN (13:18)
[2017-09-26] MEDS ORDERED: ACETAMINOPHEN 325 MG TABLET (FP) PO PRN (13:18)
[2017-09-26] MEDS ORDERED: LOPERAMIDE HCL 2 MG CAPSULE PO PRN (13:18)
[2017-09-26] MEDS ORDERED: NICOTINE POLACRILEX 2 MG GUM BUC PRN (13:18)
[2017-09-26] MEDS ORDERED: hydrOXYzine PAMOATE 50 MG CAPSULE (FP) PO PRN (13:18)
[2017-09-26] MEDS ORDERED: cloNIDine HCL 0.1 MG TABLET PO ONE (13:23)
[2017-09-26] MEDS: NICOTINE 21 MG/24 HOURS TOPICAL PATCH TD SCH (14:02)
[2017-09-26 17:08] LABS: URINE APPEARANCE CLEAR; URINE BILIRUBIN NEGATIVE (<2.0 mg/dL); URINE BLOOD NEGATIVE (NEGATIVE); URINE COLOR YELLOW; URINE GLUCOSE (UA) NEGATIVE (NEGATIVE); URINE KETONE NEGATIVE (NEGATIVE); URINE LEUK ESTERASE NEGATIVE (NEGATIVE); URINE NITRITE NEGATIVE (NEGATIVE); URINE PROTEIN NEGATIVE (NEGATIVE); URINE UROBILINOGEN NEGATIVE mg/dL (0.2-1.0)
[2017-09-26] MEDS: chlordiazePOXIDE HCL 25 MG CAPSULE PO SCH ×2 (18:00→22:08)
[2017-09-26] MEDS: guaiFENesin/D-METHORPHAN HB 10 ML UNIT-DOSE CUPS PO PRN (18:07)
[2017-09-26] MEDS: THIAMINE HCL 100 MG TABLET (FP) PO SCH (22:08)
[2017-09-26] MEDS: MELATONIN 5 MG TABLETS PO SCH (22:08)
[2017-09-27] MEDS: chlordiazePOXIDE HCL 25 MG CAPSULE PO SCH ×4 (06:26→22:06)
--- NOTE | 2017-09-27 09:08 | EKG ---
Test Reason : Blood Pressure : / mmHG Vent. Rate : 054 BPM Atrial Rate : 054 BPM P-R Int : 130 ms QRS Dur : 090 ms QT Int : 420 ms P-R-T Axes : 053 059 062 degrees QTc Int : 398 ms SINUS BRADYCARDIA VOLTAGE CRITERIA FOR LEFT VENTRICULAR HYPERTROPHY NONSPECIFIC T WAVE ABNORMALITY ABNORMAL ECG WHEN COMPARED WITH ECG OF 09-APR-2017 20:23, NONSPECIFIC T WAVE ABNORMALITY MORE PRONOUNCED Confirmed by MELO CAMARENA MD ([id number]) on 09/27/2017 9:07:56 AM Referred By: Confirmed By:MELO CAMARENA MD
--- NOTE | 2017-09-27 09:16 | CONSULT ---
[facility] Psychiatric Consult - Data Date of interview: 09/27/17 Admission source: [facility] Identifying data: This 61 years old chromic Alcoholic male, single, living alone , on SSI with psychiatric hospitalization history, looking for Detox from Cocaine, Alcohol and Nicotine abuse. Substance Abuse History: Smoking history: Current every day smoker. Have you smoked in the past 12 months: Yes. Aproximately how many cigarettes per day: 10. Cigars Per Day: 0. Hx Chewing Tobacco Use: No. Initiated information on smoking cessation: Yes. 'Breaking Loose' booklet given: 09/26/17. - Substance & Tx. History. Hx Alcohol Use: Yes. Hx Substance Use: Yes. Substance Use Type : Alcohol, Cocaine (crack). Hx Substance Use Treatment: Yes. - Substances Abused. Alcohol. Route: Oral. Frequency: Daily. Amount used: liquor, vodka, - 2 pints, beer- 2 six packs. Age of first use: 19. Date of Last Use: 09/25/17. Cocaine. Route: Inhalation (crack). Frequency: 1-2 times per week. Amount used: 3 bags. Age of first use: 23. Date of Last Use: 09/25/17 Medical History: COPD, Weight loss history Psychiatric History: Patient reports history of psychiatric admission on 2014 at [facility],. carries Schizophrenia, PTSD, reports taking prior to admission : Trazodone 5omg po qhs. Risperdal 1mg po bid. Cogentine 1mg po bid. Denies suicdal history Physical/Sexual Abuse/Trauma History: Denies Additional Comment: Trazodone 5omg po qhs. Risperdal 1mg po bid. Cogentine 1mg po bid Mental Status Exam - Mental Status Exam Alert and Oriented to: Person Cognitive Function: Fair Patient Appearance: Unkempt Mood: Apprehensive Affect: Mood Congruent Patient Behavior: Cooperative Speech Pattern: Delayed Voice Loudness: Mildly Soft/Quiet Thought Process: Goal Oriented Thought Disorder: Being Controlled Hallucinations: Denies Suicidal Ideation: Denies Homicidal Ideation: Denies Insight/Judgement: Fair Sleep: Difficulty falling asleep Appetite: Weight loss Muscle strength/Tone: Mild Hypotonicity Gait/Station: Shuffling Additional Comments: Trazodone 5omg po qhs. Risperdal 1mg po bid. Cogentine 1mg po bid Psychiatric Findings - Problem List ([place] 1, 2,3) (1) Drug-induced mood disorder Current Visit: Yes Status: Acute (2) Alcohol dependence Current Visit: No Status: Acute (3) Alcohol dependence with uncomplicated withdrawal Current Visit: No Status: Acute (4) Cocaine dependence Current Visit: No Status: Acute (5) Mood disorder Current Visit: No Status: Acute (6) Nicotine dependence Current Visit: No Status: Acute Qualifiers: Nicotine product type: cigarettes Substance use status: uncomplicated Qualified Code(s): F17.210 - Nicotine dependence, cigarettes, uncomplicated (7) History of posttraumatic stress disorder (PTSD) Current Visit: No Status: Chronic (8) History of schizophrenia Current Visit: No Status: Suspected - Initial Treatment Plan Initial Treatment Plan: Trazodone 5omg po qhs. Risperdal 1mg po bid. Cogentine 1mg po bid
[2017-09-27 10:10] LABS: HEMATOCRIT 40.3 % (35.4-49); HEMOGLOBIN 13.6 GM/dL (11.7-16.9); MCH 30.8 pg (25.7-33.7); MCHC 33.8 g/dl (32.0-35.9); MEAN CELL VOLUME 91.3 fl (80-96); MEAN PLT VOLUME 8.2 fl (7.5-11.1); PLATELET COUNT 168 K/MM3 (134-434); RBC 4.42 M/mm3 (4.00-5.60); RDW 14.3 % (11.9-15.9); WHITE BLOOD COUNT 4.5 K/mm3 (4.0-10.0)
[2017-09-27 10:33] LABS: ALK PHOS 92 U/L (45-117); ANION GAP 10 (8-16); BILIRUBIN,TOTAL 0.4 mg/dL (0.2-1.0); BLOOD UREA NITROGEN 12 mg/dL (7-18); CHLORIDE 108 mmol/L (98-107); CO2 26 mmol/L (21-32); GLUCOSE,RANDOM 150 mg/dL (74-106); POTASSIUM 3.3 mmol/L (3.5-5.1); SGOT/AST 27 U/L (15-37); SGPT/ALT 27 U/L (12-78); SODIUM 144 mmol/L (136-145); TOT PROT 6.1 g/dl (6.4-8.2)
[2017-09-27] MEDS: PRENATAL VITAMINS W/ FOLIC ACID TABLET (FP) PO SCH (10:36)
[2017-09-27] MEDS: BENZTROPINE MESYLATE 1 MG TABLET (FP) PO SCH ×2 (10:37→22:06)
[2017-09-27] MEDS: risperiDONE 1 MG TABLET (FP) PO SCH ×2 (10:37→22:06)
[2017-09-27] MEDS: guaiFENesin/D-METHORPHAN HB 10 ML UNIT-DOSE CUPS PO PRN (10:38)
[2017-09-27] MEDS: NICOTINE 21 MG/24 HOURS TOPICAL PATCH TD SCH (10:39)
--- NOTE | 2017-09-27 11:28 | PN ---
S CIWA - CIWA Score Nausea/Vomitin Muscle Tremors: 3 Anxiety: 3 Agitation: 3 Paroxysmal Sweats: 3 Orientation: 0-Oriented Tacttile Disturbances: 0-None Auditory Disturbances: 0-None Visual Disturbances: 0-None Headache: 0-None Present CIWA-Ar Total Score: 14 BHS Progress Note (SOAP) Subjective: Shakes sweats sleep disturbance Objective: 09/27/17 11:25 A & O x 3 in bed, arousable to verbal arousal Vital Signs Temperature 97.9 F 09/27/17 09:52 Pulse Rate 52 L 09/27/17 09:52 Respiratory Rate 16 09/27/17 09:52 Blood Pressure 147/94 09/27/17 09:52 O2 Sat by Pulse Oximetry (%) Laboratory Last Values WBC 4.5 K/mm3 (4.0-10.0) 09/27/17 07:00 RBC 4.42 M/mm3 (4.00-5.60) 09/27/17 07:00 Hgb 13.6 GM/dL (11.7-16.9) 09/27/17 07:00 Hct 40.3 % (35.4-49) 09/27/17 07:00 MCV 91.3 fl (80-96) 09/27/17 07:00 MCH 30.8 pg (25.7-33.7) 09/27/17 07:00 MCHC 33.8 g/dl (32.0-35.9) 09/27/17 07:00 RDW 14.3 % (11.9-15.9) 09/27/17 07:00 Plt Count 168 K/MM3 (134-434) 09/27/17 07:00 MPV 8.2 fl (7.5-11.1) 09/27/17 07:00 Sodium 144 mmol/L (136-145) 09/27/17 07:00 Potassium 3.3 mmol/L (3.5-5.1) L 09/27/17 07:00 Chloride 108 mmol/L (98-107) H 09/27/17 07:00 Carbon Dioxide 26 mmol/L (21-32) 09/27/17 07:00 Anion Gap 10 (8-16) 09/27/17 07:00 BUN 12 mg/dL (7-18) D 09/27/17 07:00 Creatinine 1.0 mg/dL (0.7-1.3) 09/27/17 07:00 Creat Clearance w eGFR > 60 (>60) 09/27/17 07:00 Random Glucose 150 mg/dL (74-106) H D 09/27/17 07:00 Calcium 8.0 mg/dL (8.5-10.1) L 09/27/17 07:00 Total Bilirubin 0.4 mg/dL (0.2-1.0) 09/27/17 07:00 AST 27 U/L (15-37) 09/27/17 07:00 ALT 27 U/L (12-78) 09/27/17 07:00 Alkaline Phosphatase 92 U/L (45-117) D 09/27/17 07:00 Total Protein 6.1 g/dl (6.4-8.2) L 09/27/17 07:00 Albumin 3.0 g/dl (3.4-5.0) L 09/27/17 07:00 Urine Color Yellow 09/26/17 13:54 Urine Appearance Clear 09/26/17 13:54 Urine pH 6.0 (5.0-8.0) 09/26/17 13:54 Ur Specific [place] 1.018 (1.001-1.035) 09/26/17 13:54 Urine Protein Negative (NEGATIVE) 09/26/17 13:54 Urine Glucose (UA) Negative (NEGATIVE) 09/26/17 13:54 Urine Ketones Negative (NEGATIVE) 09/26/17 13:54 Urine Blood Negative (NEGATIVE) 09/26/17 13:54 Urine Nitrite Negative (NEGATIVE) 09/26/17 13:54 Urine Bilirubin Negative (<2.0 mg/dL) 09/26/17 13:54 Urine Urobilinogen Negative mg/dL (0.2-1.0) 09/26/17 13:54 Ur Leukocyte Esterase Negative (NEGATIVE) 09/26/17 13:54 labs noted; low K+ Assessment: 09/27/17 11:28 withdrawal sx hypokalemia Plan: continue detox supplemental potassium
[2017-09-27] MEDS: POTASSIUM CHLORIDE ORAL LIQUID 20 MEQ/15 ML PO SCH ×2 (13:55→22:05)
[2017-09-27] MEDS: P-EPHED 60MG/TRIPROLIDI 2.5MG TABLET PO PRN ×2 (13:59→22:08)
[2017-09-27] MEDS: MENTHOL/PHENOL 1 EACH UD MM PRN ×2 (13:59→22:08)
--- NOTE | 2017-09-27 19:19 | PN ---
S Progress Note Note: Patient with scabs on both hands, in no distress. Vital Signs Temperature 97.9 F 09/27/17 18:00 Pulse Rate 53 L 09/27/17 18:00 Respiratory Rate 18 09/27/17 18:00 Blood Pressure 130/76 09/27/17 18:00 O2 Sat by Pulse Oximetry (%) Bacitracin TOP BOD PRN Keep area clean and dry Continue to monitor
[2017-09-27] MEDS: BACITRACIN 0.9 GM PACKET TP SCH (22:05)
[2017-09-27] MEDS: MELATONIN 5 MG TABLETS PO SCH (22:06)
[2017-09-27] MEDS: traZODone HCL 50 MG TABLET (FP) PO SCH (22:06)
[2017-09-27] MEDS: THIAMINE HCL 100 MG TABLET (FP) PO SCH (22:06)
[2017-09-28] MEDS: chlordiazePOXIDE HCL 25 MG CAPSULE PO SCH ×2 (07:11→10:08)
[2017-09-28] MEDS: PRENATAL VITAMINS W/ FOLIC ACID TABLET (FP) PO SCH (10:08)
[2017-09-28] MEDS: BENZTROPINE MESYLATE 1 MG TABLET (FP) PO SCH ×2 (10:08→22:25)
[2017-09-28] MEDS: POTASSIUM CHLORIDE ORAL LIQUID 20 MEQ/15 ML PO SCH ×2 (10:08→22:24)
[2017-09-28] MEDS: risperiDONE 1 MG TABLET (FP) PO SCH ×2 (10:08→22:24)
[2017-09-28] MEDS: BACITRACIN 0.9 GM PACKET TP SCH ×2 (10:08→22:24)
[2017-09-28] MEDS: NICOTINE 21 MG/24 HOURS TOPICAL PATCH TD SCH (10:09)
--- NOTE | 2017-09-28 10:24 | PN ---
[facility] CIWA - CIWA Score Nausea/Vomitin-Mild Nausea/No Vomiting Muscle Tremors: 4-Moderate,w/Arms Extend Anxiety: 4-Mod. Anxious/Guarded Agitation: 3 Paroxysmal Sweats: 1-Minimal Palms Moist Orientation: 0-Oriented Tacttile Disturbances: 0-None Auditory Disturbances: 0-None Visual Disturbances: 0-None Headache: 0-None Present CIWA-Ar Total Score: 13 BHS Progress Note (SOAP) Subjective: sweat tremor mild nausea restlessness anxiety Objective: 09/28/17 10:25 Vital Signs Temperature 97.6 F 09/28/17 10:00 Pulse Rate 71 09/28/17 10:00 Respiratory Rate 16 09/28/17 10:00 Blood Pressure 128/70 09/28/17 10:00 O2 Sat by Pulse Oximetry (%) Laboratory Last Values WBC 4.5 K/mm3 (4.0-10.0) 09/27/17 07:00 RBC 4.42 M/mm3 (4.00-5.60) 09/27/17 07:00 Hgb 13.6 GM/dL (11.7-16.9) 09/27/17 07:00 Hct 40.3 % (35.4-49) 09/27/17 07:00 MCV 91.3 fl (80-96) 09/27/17 07:00 MCH 30.8 pg (25.7-33.7) 09/27/17 07:00 MCHC 33.8 g/dl (32.0-35.9) 09/27/17 07:00 RDW 14.3 % (11.9-15.9) 09/27/17 07:00 Plt Count 168 K/MM3 (134-434) 09/27/17 07:00 MPV 8.2 fl (7.5-11.1) 09/27/17 07:00 Sodium 144 mmol/L (136-145) 09/27/17 07:00 Potassium 3.3 mmol/L (3.5-5.1) L 09/27/17 07:00 Chloride 108 mmol/L (98-107) H 09/27/17 07:00 Carbon Dioxide 26 mmol/L (21-32) 09/27/17 07:00 Anion Gap 10 (8-16) 09/27/17 07:00 BUN 12 mg/dL (7-18) D 09/27/17 07:00 Creatinine 1.0 mg/dL (0.7-1.3) 09/27/17 07:00 Creat Clearance w eGFR > 60 (>60) 09/27/17 07:00 Random Glucose 150 mg/dL (74-106) H D 09/27/17 07:00 Calcium 8.0 mg/dL (8.5-10.1) L 09/27/17 07:00 Total Bilirubin 0.4 mg/dL (0.2-1.0) 09/27/17 07:00 AST 27 U/L (15-37) 09/27/17 07:00 ALT 27 U/L (12-78) 09/27/17 07:00 Alkaline Phosphatase 92 U/L (45-117) D 09/27/17 07:00 Total Protein 6.1 g/dl (6.4-8.2) L 09/27/17 07:00 Albumin 3.0 g/dl (3.4-5.0) L 09/27/17 07:00 Urine Color Yellow 09/26/17 13:54 Urine Appearance Clear 09/26/17 13:54 Urine pH 6.0 (5.0-8.0) 09/26/17 13:54 Ur Specific [place] 1.018 (1.001-1.035) 09/26/17 13:54 Urine Protein Negative (NEGATIVE) 09/26/17 13:54 Urine Glucose (UA) Negative (NEGATIVE) 09/26/17 13:54 Urine Ketones Negative (NEGATIVE) 09/26/17 13:54 Urine Blood Negative (NEGATIVE) 09/26/17 13:54 Urine Nitrite Negative (NEGATIVE) 09/26/17 13:54 Urine Bilirubin Negative (<2.0 mg/dL) 09/26/17 13:54 Urine Urobilinogen Negative mg/dL (0.2-1.0) 09/26/17 13:54 Ur Leukocyte Esterase Negative (NEGATIVE) 09/26/17 13:54 RPR Titer Nonreactive (NONREACTIVE) 09/27/17 07:00 HIV 1&2 Antibody Screen Negative 09/27/17 07:00 HIV P24 Antigen Negative 09/27/17 07:00 lab noted 09/28/17 10:27 calcium supplement Assessment: 09/28/17 10:27 withdrawal sx Plan: continue detox
[2017-09-28] MEDS: CALCIUM (OYSTER SHELL) 500 MG TABLET (FP) PO SCH ×2 (14:17→22:40)
[2017-09-28] MEDS: guaiFENesin/D-METHORPHAN HB 10 ML UNIT-DOSE CUPS PO PRN (18:25)
[2017-09-28] MEDS: chlordiazePOXIDE 5 MG CAPSULE PO SCH ×2 (18:49→22:24)
[2017-09-28] MEDS: THIAMINE HCL 100 MG TABLET (FP) PO SCH (22:24)
[2017-09-28] MEDS: traZODone HCL 50 MG TABLET (FP) PO SCH (22:24)
[2017-09-28] MEDS: MELATONIN 5 MG TABLETS PO SCH (22:25)
[2017-09-29] MEDS: chlordiazePOXIDE 5 MG CAPSULE PO SCH ×2 (05:08→10:50)
--- NOTE | 2017-09-29 09:43 | PN ---
BHS Progress Note (SOAP) Subjective: patient c/o cough, back pain and requesting athletes foot powder for feet Objective: 09/29/17 09:41 Vital Signs - 24 hr 09/28/17 09/28/17 09/28/17 10:00 14:33 17:20 Temperature 97.6 F 98.6 F 98.4 F Pulse Rate 71 82 76 Respiratory 16 17 19 Rate Blood Pressure 128/70 130/82 138/86 09/28/17 09/29/17 09/29/17 22:23 00:30 03:30 Temperature 98.6 F Pulse Rate 79 Respiratory 19 18 18 Rate Blood Pressure 153/60 09/29/17 06:40 Temperature 96.3 F L Pulse Rate 70 Respiratory 18 Rate Blood Pressure 143/96 hypertensive, sitting up out of bed, ambulating without assistance, cough w sputum, NAD, no SOBnoted, chest clear somewhat sedated Laboratory Tests 09/26/17 09/27/17 09/27/17 13:54 07:00 07:00 WBC 4.5 RBC 4.42 Hgb 13.6 Hct 40.3 MCV 91.3 MCH 30.8 MCHC 33.8 RDW 14.3 Plt Count 168 MPV 8.2 Sodium Potassium Chloride Carbon Dioxide Anion Gap BUN Creatinine Creat Clearance w eGFR POC Glucometer Random Glucose Calcium Total Bilirubin AST ALT Alkaline Phosphatase Total Protein Albumin Urine Color Yellow Urine Appearance Clear Urine pH 6.0 Ur Specific [place] 1.018 Urine Protein Negative Urine Glucose (UA) Negative Urine Ketones Negative Urine Blood Negative Urine Nitrite Negative Urine Bilirubin Negative Urine Urobilinogen Negative Ur Leukocyte Esterase Negative RPR Titer HIV 1&2 Antibody Screen Negative HIV P24 Antigen Negative 09/27/17 09/27/17 09/29/17 07:00 07:00 05:10 WBC RBC Hgb Hct MCV MCH MCHC RDW Plt Count MPV Sodium 144 Potassium 3.3 L Chloride 108 H Carbon Dioxide 26 Anion Gap 10 BUN 12 D Creatinine 1.0 Creat Clearance w eGFR > 60 POC Glucometer 118 Random Glucose 150 H D Calcium 8.0 L Total Bilirubin 0.4 AST 27 ALT 27 Alkaline Phosphatase 92 D Total Protein 6.1 L Albumin 3.0 L Urine Color Urine Appearance Urine pH Ur Specific [place] Urine Protein Urine Glucose (UA) Urine Ketones Urine Blood Urine Nitrite Urine Bilirubin Urine Urobilinogen Ur Leukocyte Esterase RPR Titer Nonreactive HIV 1&2 Antibody Screen HIV P24 Antigen hypokalemia, hyerpglycemia, hypoalbuminemia Assessment: 09/29/17 09:42 withdrawal sx - cont detox, d/c prn medicatons, lidoderm patch for back pain, kcl supplementation, repeat labs, ch3eck ammonia level, CXR ordered, guafensin for coyugh and foot poweder tinactin ordered.
[2017-09-29] MEDS ORDERED: TOLNAFTATE 1% POWDER 45 GM POW TP SCH (10:00)
[2017-09-29] MEDS ORDERED: LIDOCAINE 5% TOPICAL PATCH TP SCH (10:00)
[2017-09-29] MEDS ORDERED: POTASSIUM CHLORIDE TABS 20 MEQ TABLET.ER (FP) PO SCH (10:00)
[2017-09-29] MEDS: risperiDONE 1 MG TABLET (FP) PO SCH (10:49)
[2017-09-29] MEDS: BACITRACIN 0.9 GM PACKET TP SCH (10:49)
[2017-09-29] MEDS: PRENATAL VITAMINS W/ FOLIC ACID TABLET (FP) PO SCH (10:49)
[2017-09-29] MEDS: CALCIUM (OYSTER SHELL) 500 MG TABLET (FP) PO SCH (10:49)
[2017-09-29] MEDS: BENZTROPINE MESYLATE 1 MG TABLET (FP) PO SCH (10:50)
[2017-09-29] MEDS: NICOTINE 21 MG/24 HOURS TOPICAL PATCH TD SCH (10:50)
[2017-09-29] MEDS: guaiFENesin/D-METHORPHAN HB 10 ML UNIT-DOSE CUPS PO PRN (10:53)
[2017-09-29 14:45] VITALS: BP 143/90; PULSE 73; TEMP 98.6
--- NOTE | 2017-09-29 16:23 | PN ---
[facility] Progress Note Note: Called by nurse, patient absconded from floor, security notified, BUT THEY could not find patient in immediate vicinity of hospital, called Alli Owusu to notify police. CXR completed - negative for pneumonia If patient is found and returned to floor will require psych assessment for decisional capacity if he is unwilling to stay, if he agrees to stay please put on 1:1. Patient did not return to floor overnight will give administrative discharge for yesterday elopement
[2017-09-29] MEDS ORDERED: chlordiazePOXIDE HCL 10 MG CAPSULE PO SCH (17:00)
[2017-09-29] MEDS ORDERED: traZODone HCL 50 MG TABLET (FP) PO SCH (22:00)
[2017-09-29] MEDS ORDERED: LIDOCAINE PATCH REMOVAL MC SCH (22:00)
--- NOTE | 2017-09-30 10:38 | DS ---
[facility] Detox Discharge Summary Admission Date: 09/26/17 Discharge Date: 09/30/17 - History Present History: Alcohol Dependence, Cocaine Dependence Additional Comments: Drill Rig Operator received a call from clinical engineering director that a patient walked off the unit. Drill Rig Operator asked clinical engineering director " where i s the patient". This clinical engineering director person states' I don't know" and Angel, the nursing assistants teacher heard that a patient walked off the unit and immediately went to get this pt. Drill Rig Operator notified security and they were unable to locate this pt. in the building, Dr. Bailon was made aware, along with Refinery Operator Helper Annmarie Infante, Nursings Hand Leather Trimmer Edilberto Donald. Dr. Bailon notified security, told them to alert the Police. Refinery Operator Helper Annmarie Infante and Dr. Bailon came to the unit to further investigate this incident. Pertinent Past History: anxiety, depression and insomnia, nicotine dependence, COPD, cough - Physical Exam Results Vital Signs: Vital Signs Temperature 98.6 F 09/29/17 14:45 Pulse Rate 73 09/29/17 14:45 Respiratory Rate 20 09/29/17 14:45 Blood Pressure 143/90 09/29/17 14:45 O2 Sat by Pulse Oximetry (%) Laboratory Tests 09/26/17 09/27/17 09/27/17 13:54 07:00 07:00 WBC 4.5 RBC 4.42 Hgb 13.6 Hct 40.3 MCV 91.3 MCH 30.8 MCHC 33.8 RDW 14.3 Plt Count 168 MPV 8.2 Sodium Potassium Chloride Carbon Dioxide Anion Gap BUN Creatinine Creat Clearance w eGFR POC Glucometer Random Glucose Calcium Total Bilirubin AST ALT Alkaline Phosphatase Total Protein Albumin Urine Color Yellow Urine Appearance Clear Urine pH 6.0 Ur Specific [place] 1.018 Urine Protein Negative Urine Glucose (UA) Negative Urine Ketones Negative Urine Blood Negative Urine Nitrite Negative Urine Bilirubin Negative Urine Urobilinogen Negative Ur Leukocyte Esterase Negative RPR Titer HIV 1&2 Antibody Screen Negative HIV P24 Antigen Negative 09/27/17 09/27/17 09/29/17 07:00 07:00 05:10 WBC RBC Hgb Hct MCV MCH MCHC RDW Plt Count MPV Sodium 144 Potassium 3.3 L Chloride 108 H Carbon Dioxide 26 Anion Gap 10 BUN 12 D Creatinine 1.0 Creat Clearance w eGFR > 60 POC Glucometer 118 Random Glucose 150 H D Calcium 8.0 L Total Bilirubin 0.4 hypokalemia, hypoalbuminemia AST 27 ALT 27 Alkaline Phosphatase 92 D Total Protein 6.1 L Albumin 3.0 L Urine Color Urine Appearance Urine pH Ur Specific [place] Urine Protein Urine Glucose (UA) Urine Ketones Urine Blood Urine Nitrite Urine Bilirubin Urine Urobilinogen Ur Leukocyte Esterase RPR Titer Nonreactive HIV 1&2 Antibody Screen HIV P24 Antigen hypokalemia, hypoalbuminemia Pertinent Admission Physical Exam Findings: withdrawal sx - Treatment Hospital Course: Detox Protocol Followed Patient has Accepted a Rehab Referral to: no - Medication Discharge Medications: Ambulatory Orders Benztropine Mesylate [Cogentin -] 1 mg PO BID #60 tablet 09/27/17 Risperidone [Risperdal -] 1 mg PO BID #60 tablet 09/27/17 traZODone HCL [Desyrel -] 50 mg PO HS #30 tablet 09/27/17 - Diagnosis (1) Drug-induced mood disorder Current Visit: Yes Status: Acute (2) Weight loss Current Visit: Yes Status: Suspected (3) Alcohol dependence with uncomplicated withdrawal Current Visit: No Status: Acute (4) Cocaine dependence Current Visit: No Status: Acute (5) Nicotine dependence Current Visit: No Status: Acute Qualifiers: Nicotine product type: cigarettes Substance use status: uncomplicated Qualified Code(s): F17.210 - Nicotine dependence, cigarettes, uncomplicated (6) Substance induced mood disorder Current Visit: No Status: Acute (7) COPD (chronic obstructive pulmonary disease) Current Visit: No Status: Chronic Qualifiers: COPD type: unspecified COPD Qualified Code(s): J44.9 - Chronic obstructive pulmonary disease, unspecified (8) History of posttraumatic stress disorder (PTSD) Current Visit: No Status: Chronic (9) Hypertension Current Visit: No Status: Chronic Qualifiers: Hypertension type: essential hypertension Qualified Code(s): I10 - Essential (primary) hypertension (10) History of schizophrenia Current Visit: No Status: Suspected - AMA Did Patient Leave Against Medical Advice: Yes (did not sign medical forms,)
== END 2017-09-29 15:45 | disposition left against medical advice (07) | DRG 770 ==
LOC: YASAS 10:48 → Y6N 11:37
PROVIDERS: ADMIT Internal Medicine; ATTEND Internal Medicine
PROC: HZ2ZZZZ Detoxification Services for Substance Abuse Treatment (ICD-10-PCS; principal; 2017-09-26)
DX: F10.230 Alcohol dependence with withdrawal, uncomplicated (principal); F14.20 Cocaine dependence, uncomplicated; F17.210 Nicotine dependence, cigarettes, uncomplicated; F31.9 Bipolar disorder, unspecified; F19.24 Other psychoactive substance dependence with psychoactive substance-induced mood disorder; F43.10 Post-traumatic stress disorder, unspecified; F39 Unspecified mood [affective] disorder; F20.9 Schizophrenia, unspecified; I10 Essential (primary) hypertension; J44.9 Chronic obstructive pulmonary disease, unspecified; D57.3 Sickle-cell trait; R63.4 Abnormal weight loss; Z68.24 Body mass index [BMI] 24.0-24.9, adult; Z91.14 Patient's other noncompliance with medication regimen
CPT/HCPCS: 36415; 71046-TC-FY; 80053; 81003; 82962; 85027; 86593; 87389; 93005; 93010; J0735; J2794

== ENCOUNTER 2017-12-09 11:46 | Inpatient (IN) | payer OTHER ==
[2017-12-09 12:56] VITALS: BMI 21.6
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
[2017-12-09] MEDS ORDERED: P-EPHED 60MG/TRIPROLIDI 2.5MG TABLET PO PRN (14:19)
[2017-12-09] MEDS ORDERED: MAGNESIUM CITRATE 300 ML BOTTLE PO PRN (14:19)
[2017-12-09] MEDS ORDERED: LOPERAMIDE HCL 2 MG CAPSULE PO PRN (14:19)
[2017-12-09] MEDS ORDERED: IBUPROFEN 400 MG TABLET (FP) PO PRN (14:19)
[2017-12-09] MEDS ORDERED: NICOTINE POLACRILEX 2 MG GUM BUC PRN (14:19)
[2017-12-09] MEDS ORDERED: MENTHOL/PHENOL 1 EACH UD MM PRN (14:19)
[2017-12-09] MEDS ORDERED: MAGNESIUM HYDROX 2400MG/30ML ORAL SUSPENSION 30 ML CUP PO PRN (14:19)
[2017-12-09] MEDS ORDERED: MAG HYDROX/AL HYDROX/SIMETH 30 ML UNIT-DOSE CUP PO PRN (14:19)
[2017-12-09] MEDS ORDERED: chlordiazePOXIDE HCL 25 MG CAPSULE PO PRN (14:19)
[2017-12-09] MEDS ORDERED: ACETAMINOPHEN 325 MG TABLET (FP) PO PRN (14:19)
[2017-12-09] MEDS ORDERED: guaiFENesin/D-METHORPHAN HB 10 ML UNIT-DOSE CUPS PO PRN (14:19)
[2017-12-09] MEDS ORDERED: ALBUTEROL SO4 18 GM HFA INHALER IH PRN (14:22)
[2017-12-09] MEDS: NICOTINE 14 MG/24 HOURS TOPICAL PATCH TD SCH (15:56)
[2017-12-09] MEDS: amLODIPine BESYLATE 5 MG TABLET (FP) PO SCH (15:56)
--- NOTE | 2017-12-09 17:11 | CONSULT ---
[facility] Psychiatric Consult - Data Date of interview: 12/09/17 Admission source: [facility] Identifying data: Patient is a 61 year old single male, father of two, domiciled , and supported by [facility]. This is one of multiple admissions for patient. Pt. admitted to for alcohol and cocaine dependence. Substance Abuse History: Smoking Cessation. Smoking history: Current every day smoker. Have you smoked in the past 12 months: Yes. Aproximately how many cigarettes per day: 10. Cigars Per Day: 0. Hx Chewing Tobacco Use: No. Initiated information on smoking cessation: Yes. 'Breaking Loose' booklet given : 12/09/17. - Substance & Tx. History. Hx Alcohol Use: Yes. Substance Use Type: Alcohol, Cocaine. Hx Substance Use Treatment: Yes (09/2017 [facility]). - Substances Abused. Alcohol. Route: Oral. Frequency: Daily. Amount used: pint vodka. Age of first use: 19. Date of Last Use: 12/09/17 Medical History: Anemia (positive sickle cell trait), COPD, hypertension, right ankle surgery Psychiatric History: Patient presents as a poor historian. Patient's most recent psychiatric hospitalization was 2-3 months ago at the [facility] in [place]. Report a diagnosis of schizophrenia/bipolar disorder. Pt is nonadherent to medication but reports h/o accepting risperdal. As per chart patient was in detox on 2017 and was prescribed risperdal 1mg BID + Cogentin 1mg BID + trazodone 50mg qhs. Patient denies h/o suicide attempt. Physical/Sexual Abuse/Trauma History: Denies. Mental Status Exam - Mental Status Exam Alert and Oriented to: Time, Place, Person Cognitive Function: Good Patient Appearance: Unkempt Mood: Withdrawn Affect: Flat Patient Behavior: Fatigued Speech Pattern: Delayed Voice Loudness: Moderately Soft/Quiet Thought Process: Goal Oriented Thought Disorder: Not Present Hallucinations: Denies Suicidal Ideation: Denies Homicidal Ideation: Denies Insight/Judgement: Poor Sleep: Poorly Appetite: Fair Muscle strength/Tone: Normal Gait/Station: Other (Did not observe patient's gait.) Psychiatric Findings - Problem List ([place] 1, 2,3) (1) Alcohol dependence with uncomplicated withdrawal Current Visit: Yes Status: Acute (2) Nicotine dependence Current Visit: Yes Status: Acute Qualifiers: Nicotine product type: cigarettes Substance use status: in withdrawal Qualified Code(s): F17.213 - Nicotine dependence, cigarettes, with withdrawal (3) Cocaine dependence Current Visit: Yes Status: Acute (4) Substance induced mood disorder Current Visit: Yes Status: Acute (5) History of schizophrenia Current Visit: Yes Status: Suspected - Initial Treatment Plan Initial Treatment Plan: Psychoeducation provided. Detoxification in progress. Risperdal 1mg BID + Cogentin 1mg BID + trazodone 50mg qhs ordered. Benefits and side effects discusssed. Pt. made aware of the risk of priapism when accepting trazodone. Verbal consent given. Will continue to monitor.
[2017-12-09] MEDS: chlordiazePOXIDE HCL 25 MG CAPSULE PO SCH ×2 (17:32→22:04)
[2017-12-09 18:00] LABS: URINE APPEARANCE CLEAR; URINE BILIRUBIN NEGATIVE (<2.0 mg/dL); URINE BLOOD NEGATIVE (NEGATIVE); URINE COLOR COLORLESS; URINE GLUCOSE (UA) NEGATIVE (NEGATIVE); URINE KETONE NEGATIVE (NEGATIVE); URINE LEUK ESTERASE NEGATIVE (NEGATIVE); URINE NITRITE NEGATIVE (NEGATIVE); URINE PROTEIN NEGATIVE (NEGATIVE); URINE UROBILINOGEN NEGATIVE mg/dL (0.2-1.0)
[2017-12-09] MEDS ORDERED: MELATONIN 5 MG TABLETS PO PRN (22:00)
[2017-12-09] MEDS: risperiDONE 1 MG TABLET (FP) PO SCH (22:04)
[2017-12-09] MEDS: THIAMINE HCL 100 MG TABLET (FP) PO SCH (22:04)
[2017-12-09] MEDS: BENZTROPINE MESYLATE 1 MG TABLET (FP) PO SCH (22:04)
[2017-12-09] MEDS: traZODone HCL 50 MG TABLET (FP) PO SCH (22:04)
[2017-12-09] MEDS: BUDESONIDE/FORMETEROL FUMARATE 80/4.5 mcg INHALER IH SCH (22:46)
[2017-12-10] MEDS: chlordiazePOXIDE HCL 25 MG CAPSULE PO SCH ×4 (05:16→22:17)
[2017-12-10] MEDS: BENZTROPINE MESYLATE 1 MG TABLET (FP) PO SCH ×2 (10:14→22:17)
[2017-12-10] MEDS: BUDESONIDE/FORMETEROL FUMARATE 80/4.5 mcg INHALER IH SCH ×2 (10:14→22:51)
[2017-12-10] MEDS: NICOTINE 14 MG/24 HOURS TOPICAL PATCH TD SCH (10:14)
[2017-12-10] MEDS: risperiDONE 1 MG TABLET (FP) PO SCH ×2 (10:14→22:17)
[2017-12-10] MEDS: PRENATAL VITAMINS W/ FOLIC ACID TABLET (FP) PO SCH (10:14)
[2017-12-10] MEDS: amLODIPine BESYLATE 5 MG TABLET (FP) PO SCH (10:14)
[2017-12-10 10:32] LABS: HEMATOCRIT 39.9 % (35.4-49); HEMOGLOBIN 13.5 GM/dL (11.7-16.9); MCH 30.6 pg (25.7-33.7); MCHC 33.8 g/dl (32.0-35.9); MEAN CELL VOLUME 90.6 fl (80-96); MEAN PLT VOLUME 8.6 fl (7.5-11.1); PLATELET COUNT 204 K/MM3 (134-434); RBC 4.41 M/mm3 (4.00-5.60); RDW 14.4 % (11.9-15.9); WHITE BLOOD COUNT 4.1 K/mm3 (4.0-10.0)
[2017-12-10 10:44] LABS: CHLORIDE 107 mmol/L (98-107); POTASSIUM 4.1 mmol/L (3.5-5.1); SODIUM 140 mmol/L (136-145)
--- NOTE | 2017-12-10 10:49 | EKG ---
Test Reason : Blood Pressure : / mmHG Vent. Rate : 058 BPM Atrial Rate : 058 BPM P-R Int : 136 ms QRS Dur : 086 ms QT Int : 436 ms P-R-T Axes : 053 028 043 degrees QTc Int : 428 ms SINUS BRADYCARDIA WITH MARKED SINUS ARRHYTHMIA MINIMAL VOLTAGE CRITERIA FOR LVH, MAY BE NORMAL VARIANT NONSPECIFIC T WAVE ABNORMALITY WHEN COMPARED WITH ECG OF 26-SEP-2017 13:15, NONSPECIFIC T WAVE ABNORMALITY NO LONGER EVIDENT IN LATERAL LEADS Confirmed by REHAN CAGE MD ([id number]) on 12/10/2017 10:48:54 AM Referred By: Confirmed By:REHAN CAGE MD
[2017-12-10 11:11] LABS: ALBUMIN 3.5 g/dl (3.4-5.0); ALK PHOS 78 U/L (45-117); ANION GAP 5 (8-16); BILIRUBIN,TOTAL 0.3 mg/dL (0.2-1.0); BLOOD UREA NITROGEN 12 mg/dL (7-18); CALCIUM 8.3 mg/dL (8.5-10.1); CO2 28 mmol/L (21-32); GLUCOSE,RANDOM 101 mg/dL (74-106); SGOT/AST 49 U/L (15-37); SGPT/ALT 43 U/L (12-78); TOT PROT 6.9 g/dl (6.4-8.2)
--- NOTE | 2017-12-10 13:07 | PN ---
S CIWA - CIWA Score Nausea/Vomitin-No Nausea/No Vomiting Muscle Tremors: 4-Moderate,w/Arms Extend Anxiety: 4-Mod. Anxious/Guarded Agitation: 3 Paroxysmal Sweats: 1-Minimal Palms Moist Orientation: 0-Oriented Tacttile Disturbances: 0-None Auditory Disturbances: 0-None Visual Disturbances: 0-None Headache: 0-None Present CIWA-Ar Total Score: 12 BHS Progress Note (SOAP) Subjective: ANXIETY,SWEATS,FATIGUE. Objective: 12/10/17 13:07 Vital Signs 12/10/17 12/10/17 06:33 09:56 Temperature 97.8 F 97.4 F L Pulse Rate 57 L 68 Respiratory 18 18 Rate Blood Pressure 119/64 123/68 Laboratory Tests 12/09/17 12/10/17 12/10/17 17:26 06:00 06:00 WBC 4.1 RBC 4.41 Hgb 13.5 Hct 39.9 MCV 90.6 MCH 30.6 MCHC 33.8 RDW 14.4 Plt Count 204 D MPV 8.6 Sodium 140 Potassium 4.1 D Chloride 107 Carbon Dioxide 28 Anion Gap 5 L BUN 12 Creatinine 1.0 Creat Clearance w eGFR > 60 Random Glucose 101 D Calcium 8.3 L Total Bilirubin 0.3 D AST 49 H D ALT 43 D Alkaline Phosphatase 78 Total Protein 6.9 Albumin 3.5 Urine Color Colorless Urine Appearance Clear Urine pH 7.0 Ur Specific [place] 1.004 Urine Protein Negative Urine Glucose (UA) Negative Urine Ketones Negative Urine Blood Negative Urine Nitrite Negative Urine Bilirubin Negative Urine Urobilinogen Negative Ur Leukocyte Esterase Negative Assessment: 12/10/17 13:07 WITHDRAWAL SX Plan: CONTINUE DETOX
[2017-12-10] MEDS: traZODone HCL 50 MG TABLET (FP) PO SCH (22:17)
[2017-12-10] MEDS: THIAMINE HCL 100 MG TABLET (FP) PO SCH (22:17)
[2017-12-11] MEDS: chlordiazePOXIDE HCL 25 MG CAPSULE PO SCH ×2 (05:54→10:58)
[2017-12-11] MEDS: BENZTROPINE MESYLATE 1 MG TABLET (FP) PO SCH ×2 (10:58→22:09)
[2017-12-11] MEDS: risperiDONE 1 MG TABLET (FP) PO SCH (10:58)
[2017-12-11] MEDS: PRENATAL VITAMINS W/ FOLIC ACID TABLET (FP) PO SCH (10:58)
[2017-12-11] MEDS: NICOTINE 14 MG/24 HOURS TOPICAL PATCH TD SCH (10:59)
[2017-12-11] MEDS: amLODIPine BESYLATE 5 MG TABLET (FP) PO SCH (10:59)
[2017-12-11] MEDS: BUDESONIDE/FORMETEROL FUMARATE 80/4.5 mcg INHALER IH SCH ×2 (11:00→22:09)
[2017-12-11] MEDS ORDERED: ONDANSETRON *ODT* 4 MG TABLET SL PRN (15:06)
--- NOTE | 2017-12-11 16:12 | PN ---
S CIWA - CIWA Score Nausea/Vomitin Muscle Tremors: 2 Anxiety: 4-Mod. Anxious/Guarded Agitation: 3 Paroxysmal Sweats: No Perspiration Orientation: 2-Disoriented Date<2 days Tacttile Disturbances: 0-None Auditory Disturbances: 0-None Visual Disturbances: 2-Mild Sensitivity Headache: 0-None Present CIWA-Ar Total Score: 16 BHS Progress Note (SOAP) Subjective: Nausea, Interrupted Sleep, Anxious, Fatigue. Objective: PATIENT A & O X 2 (UNCERTAIN ABOUT CURRENT DAY / DATE). PATIENT OBSERVED AMBULATING ON UNIT. NO ACUTE DISTRESS. 12/11/17 16:09 Vital Signs Temperature 97.6 F 12/11/17 14:16 Pulse Rate 57 L 12/11/17 14:16 Respiratory Rate 18 12/11/17 14:16 Blood Pressure 138/85 12/11/17 14:16 O2 Sat by Pulse Oximetry (%) Laboratory Tests 12/09/17 12/10/17 12/10/17 17:26 06:00 06:00 WBC 4.1 RBC 4.41 Hgb 13.5 Hct 39.9 MCV 90.6 MCH 30.6 MCHC 33.8 RDW 14.4 Plt Count 204 D MPV 8.6 Sodium 140 Potassium 4.1 D Chloride 107 Carbon Dioxide 28 Anion Gap 5 L BUN 12 Creatinine 1.0 Creat Clearance w eGFR > 60 Random Glucose 101 D Calcium 8.3 L Total Bilirubin 0.3 D AST 49 H D ALT 43 D Alkaline Phosphatase 78 Total Protein 6.9 Albumin 3.5 Urine Color Colorless Urine Appearance Clear Urine pH 7.0 Ur Specific [place] 1.004 Urine Protein Negative Urine Glucose (UA) Negative Urine Ketones Negative Urine Blood Negative Urine Nitrite Negative Urine Bilirubin Negative Urine Urobilinogen Negative Ur Leukocyte Esterase Negative RPR Titer 12/10/17 06:00 WBC RBC Hgb Hct MCV MCH MCHC RDW Plt Count MPV Sodium Potassium Chloride Carbon Dioxide Anion Gap BUN Creatinine Creat Clearance w eGFR Random Glucose Calcium Total Bilirubin AST ALT Alkaline Phosphatase Total Protein Albumin Urine Color Urine Appearance Urine pH Ur Specific [place] Urine Protein Urine Glucose (UA) Urine Ketones Urine Blood Urine Nitrite Urine Bilirubin Urine Urobilinogen Ur Leukocyte Esterase RPR Titer Nonreactive LABS NOTED. Assessment: 12/11/17 16:10 WITHDRAWAL SYMPTOMS. Plan: CONTINUE DETOX. PATIENT APPEARS SOMEWHAT LETHARGIC - PSYCH EVAL. FOR CURRENTLY PRESCRIBED PSYCHIATRIC MEDS. ORDERED. AMMONIA LEVEL ORDERED FOR TOMORROW AM. INCREASE DAILY PO FLUID INTAKE (WATER PITCHER FOR BEDSIDE).
[2017-12-11] MEDS: chlordiazePOXIDE 5 MG CAPSULE PO SCH ×2 (16:35→22:10)
--- NOTE | 2017-12-11 16:42 | PN ---
Psychiatric Progress Note Vital Signs: Vital Signs Period Temp Pulse Resp BP Sys/Mccarthy Pulse Ox Last 24 Hr 96.4 F-98.6 F 49-70 16-20 124-138/75-88 Date of Session: 12/11/17 Chief Complaint:: " I walk funny.That's not right." HPI: Asked to re-consult on this patient because of unsteady gait. ROS: Alert and oriented to three spheres.Ambulatory.Ataxic. Current Medications: Active Medications Generic Name Dose Route Start Last Admin Trade Name Freq PRN Reason Stop Dose Admin Acetaminophen 650 mg 12/09/17 14:19 Tylenol - PO Q4H PRN FEVER Al Hydroxide/Mg Hydroxide 30 ml 12/09/17 14:19 Mylanta Oral Suspension - PO Q6H PRN DYSPEPSIA Albuterol Sulfate 2 puff 12/09/17 14:22 Ventolin Hfa Inhaler - IH Q4H PRN SHORT OF BREATH/WHEEZING Amlodipine Besylate 5 mg 12/09/17 15:10 12/11/17 10:59 Norvasc - PO 5 mg DAILY CHRISTINA Administration Benztropine Mesylate 1 mg 12/09/17 22:00 12/11/17 10:58 Cogentin - PO 1 mg BID CHRISTINA Administration Budesonide/Formoterol Fumarate 2 puff 12/09/17 22:00 12/11/17 11:00 Symbicort 80/4.5mcg - IH Not Given BID CHRISTINA Chlordiazepoxide HCl 15 mg 12/11/17 17:00 12/11/17 16:35 Librium - PO 12/12/17 11:01 Not Given D4W-VAD CHRISTINA Chlordiazepoxide HCl 25 mg 12/09/17 14:19 Librium - PO 12/12/17 14:18 Q4H PRN WITHDRAWAL(CONT SUBST) Chlordiazepoxide HCl 10 mg 12/12/17 17:00 Librium - PO 12/13/17 11:01 [id number] CHRISTINA Eucalyptus/Menthol/Phenol/Sorbitol 1 each 12/09/17 14:19 Cepastat Lozenge - MM Q4H PRN SORE THROAT Guaifenesin 10 ml 12/09/17 14:19 Robitussin Dm - PO Q6H PRN COUGH Ibuprofen 400 mg 12/09/17 14:19 12/11/17 05:55 Motrin - PO 400 mg Q6H PRN Administration PAIN LEVEL 4-6 Loperamide HCl 4 mg 12/09/17 14:19 Imodium - PO Q6H PRN DIARRHEA Magnesium Citrate 300 ml 12/09/17 14:19 Citroma - PO Q48H PRN CONSTIPATION Magnesium Hydroxide 30 ml 12/09/17 14:19 Milk Of Magnesia - PO DAILY PRN CONSTIPATION Melatonin 5 mg 12/09/17 22:00 Melatonin PO HS PRN INSOMNIA Nicotine 14 mg 12/09/17 15:15 12/11/17 10:59 Nicoderm Patch - TD Not Given DAILY CHRISTINA Nicotine Polacrilex 2 mg 12/09/17 14:19 Nicorette Gum - BUC Q2H PRN NICOTINE REPLACEMENT RX Ondansetron HCl 4 mg 12/11/17 15:06 Zofran Odt - SL Q8H PRN NAUSEA AND/OR VOMITING Multivit/Folic Acid/Iron 1 tab 12/10/17 10:00 12/11/17 10:58 Vitamins (Sjr) - PO 1 tab DAILY CHRISTINA Administration Pseudoephedrine/Triprolidine 1 combo 12/09/17 14:19 Actifed - PO TID PRN NASAL CONGESTION Thiamine HCl 100 mg 12/09/17 22:00 12/10/17 22:17 Vitamin B1 - PO 100 mg HS CHRISTINA Administration Medication(s) Change(s): Risperdal and trazodone are discontinued.Will observe.Suggest adjustment of detoxification regimen as well.Discussed with nursing staff. Current Side Effect: Yes (unsteady gait) Lab tests ordered: No Lab tests reviewed: Yes Provider note:: Chart reviewed.geothermal powerplant mechanic Jacob's note : read and appreciated.Labs revisited.Met with patient.Mr Del Valle is ambulatory,visible on the unit and performant in ADL activities.He, however, appears sluggish,odd and unsteady.Fully aware of sudden changes in his movements.Patient expresses concern over this issue and he remarks that " things have started since I began to take these new medications." He admits to a long period of non-adherence to risperdal and trazodone (more than two months).Speech is slurred and the patient appears dazed at times.Not psychotic or manic.Mr Del Valle remains cognitively well enough to question his new symptoms.Medications should be the prime suspects.This new onset of ataxia predisposes the patient to falls and potential injuries.Fall precautions recommended.Agree with the decision to request ammonia level.In the meantime, the patient needs close observation for safety.Risperdal + trazodone : held until further orders.Will follow. Total face to face time:: 25 Mental Status Exam - Mental Status Exam Alert and Oriented to: Time, Place, Person Cognitive Function: Grossly Intact Patient Appearance: Disheveled (appears much older than stated age) Mood: Anxious, Apprehensive Affect: Mood Congruent Patient Behavior: Fatigued, Cooperative Speech Pattern: Clear Voice Loudness: Normal Thought Process: Goal Oriented Thought Disorder: Not Present Hallucinations: Denies Suicidal Ideation: Denies Homicidal Ideation: Denies Insight/Judgement: Fair Sleep: Well Appetite: Good Gait/Station: Ataxic Psychiatric Treatment Plan - Problem List (1) Ataxia Current Visit: Yes (2) Alcohol dependence with uncomplicated withdrawal Current Visit: Yes (3) Cocaine dependence Current Visit: Yes Qualifiers: Substance use status: uncomplicated Qualified Code(s): F14.20 - Cocaine dependence, uncomplicated (4) Nicotine dependence Current Visit: Yes Qualifiers: Nicotine product type: cigarettes Substance use status: in withdrawal Qualified Code(s): F17.213 - Nicotine dependence, cigarettes, with withdrawal (5) Substance induced mood disorder Current Visit: Yes (6) History of schizophrenia Current Visit: Yes (7) History of posttraumatic stress disorder (PTSD) Current Visit: Yes
[2017-12-11] MEDS: THIAMINE HCL 100 MG TABLET (FP) PO SCH (22:09)
[2017-12-12] MEDS: chlordiazePOXIDE 5 MG CAPSULE PO SCH (05:08)
[2017-12-12] MEDS: NICOTINE 14 MG/24 HOURS TOPICAL PATCH TD SCH (09:51)
[2017-12-12] MEDS: BENZTROPINE MESYLATE 1 MG TABLET (FP) PO SCH (09:52)
[2017-12-12] MEDS: amLODIPine BESYLATE 5 MG TABLET (FP) PO SCH (09:52)
[2017-12-12] MEDS: PRENATAL VITAMINS W/ FOLIC ACID TABLET (FP) PO SCH (09:52)
[2017-12-12 09:59] VITALS: BP 145/91; PULSE 75; TEMP 98
--- NOTE | 2017-12-12 14:14 | PN ---
[facility] Progress Note (SOAP) Subjective: PT DECLINED TO CONTINUE TREATMENT STATING HE WANTS TO LEAVE ON HIS OWN TERMS. PT WAS ALL DRESSED UP READY TO GO BEFORE THIS SHIFT STARTED AND DEMANDED TO BE SIGNED OUT. ALERT O X 3. CERTAIN ON HIS CURRENT LOCATION. CLAIMS THE MEDICINE HE IS TAKING HERE DISORGANISED HIM. DENIES ANY DISCOMFORT OR DIZZINESS/TREMORS THIS MORNING. DECLINED TO WAIT FOR AMMONIA LEVEL RESULTS ORDERED BY PREVIOUS PROVIDER. PT STATES "I GO TO [facility] ANYWAY AND I WILL SEE MY DOCTOR". WHEN ASKED WHEN HE HOPES TO SEE HIS DOCTOR, PT RESPONDED "ANYTIME I WANT". Objective: 12/12/17 14:13 Vital Signs 12/12/17 12/12/17 06:20 09:58 Temperature 98.7 F 98.0 F Pulse Rate 72 75 Respiratory 18 18 Rate Blood Pressure 133/81 145/91 Laboratory Tests 12/09/17 12/10/17 12/10/17 17:26 06:00 06:00 WBC 4.1 RBC 4.41 Hgb 13.5 Hct 39.9 MCV 90.6 MCH 30.6 MCHC 33.8 RDW 14.4 Plt Count 204 D MPV 8.6 Sodium 140 Potassium 4.1 D Chloride 107 Carbon Dioxide 28 Anion Gap 5 L BUN 12 Creatinine 1.0 Creat Clearance w eGFR > 60 Random Glucose 101 D Calcium 8.3 L Total Bilirubin 0.3 D AST 49 H D ALT 43 D Alkaline Phosphatase 78 Ammonia Total Protein 6.9 Albumin 3.5 Urine Color Colorless Urine Appearance Clear Urine pH 7.0 Ur Specific [place] 1.004 Urine Protein Negative Urine Glucose (UA) Negative Urine Ketones Negative Urine Blood Negative Urine Nitrite Negative Urine Bilirubin Negative Urine Urobilinogen Negative Ur Leukocyte Esterase Negative RPR Titer 12/10/17 12/12/17 06:00 07:50 WBC RBC Hgb Hct MCV MCH MCHC RDW Plt Count MPV Sodium Potassium Chloride Carbon Dioxide Anion Gap BUN Creatinine Creat Clearance w eGFR Random Glucose Calcium Total Bilirubin AST ALT Alkaline Phosphatase Ammonia 39.25 H Total Protein Albumin Urine Color Urine Appearance Urine pH Ur Specific [place] Urine Protein Urine Glucose (UA) Urine Ketones Urine Blood Urine Nitrite Urine Bilirubin Urine Urobilinogen Ur Leukocyte Esterase RPR Titer Nonreactive Assessment: 12/12/17 14:13 NAD Plan: PT SIGNED OUT AMA PT WILL F/U WITH PMD AT [facility] NEEDED.
--- NOTE | 2017-12-12 14:18 | DS ---
[facility] Detox Discharge Summary Admission Date: 12/09/17 Discharge Date: 12/12/17 - History Present History: Alcohol Dependence, Cocaine Dependence Additional Comments: PT DECLINED TO CONTINUE WITH TREATMENT. ALERT O X 3. NAD. PT TO FOLLOW UP WITH PMD AT [place], [place] FOR MEDICAL MANAGEMENT. ALL LAB RESULTS IN D/ C PACKET FOR FOLLOW UP WITH PRIMARY CARE. Pertinent Past History: PLEASE SEE DX BELOW - Physical Exam Results Vital Signs: Vital Signs Temperature 98.0 F 12/12/17 09:58 Pulse Rate 75 12/12/17 09:58 Respiratory Rate 18 12/12/17 09:58 Blood Pressure 145/91 12/12/17 09:58 O2 Sat by Pulse Oximetry (%) Pertinent Admission Physical Exam Findings: WITHDRAWAL SX Laboratory Tests 12/09/17 12/10/17 12/10/17 17:26 06:00 06:00 WBC 4.1 RBC 4.41 Hgb 13.5 Hct 39.9 MCV 90.6 MCH 30.6 MCHC 33.8 RDW 14.4 Plt Count 204 D MPV 8.6 Sodium 140 Potassium 4.1 D Chloride 107 Carbon Dioxide 28 Anion Gap 5 L BUN 12 Creatinine 1.0 Creat Clearance w eGFR > 60 Random Glucose 101 D Calcium 8.3 L Total Bilirubin 0.3 D AST 49 H D ALT 43 D Alkaline Phosphatase 78 Ammonia Total Protein 6.9 Albumin 3.5 Urine Color Colorless Urine Appearance Clear Urine pH 7.0 Ur Specific [place] 1.004 Urine Protein Negative Urine Glucose (UA) Negative Urine Ketones Negative Urine Blood Negative Urine Nitrite Negative Urine Bilirubin Negative Urine Urobilinogen Negative Ur Leukocyte Esterase Negative RPR Titer 12/10/17 12/12/17 06:00 07:50 WBC RBC Hgb Hct MCV MCH MCHC RDW Plt Count MPV Sodium Potassium Chloride Carbon Dioxide Anion Gap BUN Creatinine Creat Clearance w eGFR Random Glucose Calcium Total Bilirubin AST ALT Alkaline Phosphatase Ammonia 39.25 H Total Protein Albumin Urine Color Urine Appearance Urine pH Ur Specific [place] Urine Protein Urine Glucose (UA) Urine Ketones Urine Blood Urine Nitrite Urine Bilirubin Urine Urobilinogen Ur Leukocyte Esterase RPR Titer Nonreactive LABS NOTED - Treatment Hospital Course: Discharged Condition Good - Medication Discharge Medications: Ambulatory Orders Benztropine Mesylate [Cogentin -] 1 mg PO BID #60 tablet 09/27/17 Risperidone [Risperdal -] 1 mg PO BID #60 tablet 09/27/17 traZODone HCL [Desyrel -] 50 mg PO HS #30 tablet 09/27/17 Albuterol Sulfate Inhaler - [Ventolin Hfa Inhaler -] 2 inh PO Q4H PRN 12/09/17 - Diagnosis (1) Alcohol dependence with uncomplicated withdrawal Status: Acute (2) Cocaine dependence Status: Acute Qualifiers: Substance use status: uncomplicated Qualified Code(s): F14.20 - Cocaine dependence, uncomplicated (3) Nicotine dependence Status: Acute Qualifiers: Nicotine product type: cigarettes Substance use status: in withdrawal Qualified Code(s): F17.213 - Nicotine dependence, cigarettes, with withdrawal (4) Weight loss Status: Acute (5) COPD (chronic obstructive pulmonary disease) Status: Chronic Qualifiers: COPD type: emphysema Emphysema type: unilateral Qualified Code(s): J43.0 - Unilateral pulmonary emphysema [MacLeod's syndrome] (6) Hypertension Status: Chronic Qualifiers: Hypertension type: essential hypertension Qualified Code(s): I10 - Essential (primary) hypertension
[2017-12-12] MEDS ORDERED: chlordiazePOXIDE HCL 10 MG CAPSULE PO SCH (17:00)
== END 2017-12-12 11:27 | disposition left against medical advice (07) | DRG 770 ==
LOC: YASAS 11:46 → Y3N 14:56
PROVIDERS: ADMIT Surgery; ATTEND Surgery
PROC: HZ2ZZZZ Detoxification Services for Substance Abuse Treatment (ICD-10-PCS; principal; 2017-12-09)
DX: F10.230 Alcohol dependence with withdrawal, uncomplicated (principal); F14.20 Cocaine dependence, uncomplicated; F17.213 Nicotine dependence, cigarettes, with withdrawal; F19.24 Other psychoactive substance dependence with psychoactive substance-induced mood disorder; I10 Essential (primary) hypertension; J43.0 Unilateral pulmonary emphysema [MacLeod's syndrome]; R27.0 Ataxia, unspecified; D57.3 Sickle-cell trait; R00.1 Bradycardia, unspecified; Z86.59 Personal history of other mental and behavioral disorders; Z87.898 Personal history of other specified conditions
CPT/HCPCS: 36415; 80053; 81003; 82140; 85027; 86593; 93005; 93010; J2794

== ENCOUNTER 2020-07-14 20:16 | Emergency (ER) | payer OTHER ==
[2020-07-14 21:11] VITALS: BMI 34.3
[2020-07-14] MEDS ORDERED: ACETAMINOPHEN 325 MG TABLET (FP) PO ONE (23:01)
[2020-07-14] MEDS ORDERED: ACETAMINOPHEN 325 MG TABLET (FP) ONE (23:14)
[2020-07-15] MEDS ORDERED: METOCLOPRAMIDE HCL INJECTION 10 MG/2 ML VIAL IVPB ONE (00:53)
[2020-07-15] MEDS ORDERED: THIAMINE HCL 200 MG/2 ML VIAL IVPB ONE (00:54)
[2020-07-15] MEDS ORDERED: FOLIC ACID 1 MG TABLET (FP) PO ONE (00:54)
[2020-07-15] MEDS ORDERED: LACTATED RINGERS SOLUTION 1000 ML INFUS.BAG IV ONE (00:57)
[2020-07-15] MEDS ORDERED: FOLIC ACID 1 MG TABLET (FP) ONE (01:24)
[2020-07-15] MEDS ORDERED: THIAMINE HCL 200 MG/2 ML VIAL ONE (01:24)
[2020-07-15] MEDS ORDERED: METOCLOPRAMIDE HCL INJECTION 10 MG/2 ML VIAL ONE (01:25)
[2020-07-15 01:31] LABS: BASO % 0.3 % (0-2.0); HEMATOCRIT 37.9 % (35.4-49); HEMOGLOBIN 12.8 GM/dL (11.7-16.9); MCH 30.1 pg (25.7-33.7); MCHC 33.8 g/dl (32.0-35.9); MEAN CELL VOLUME 88.9 fl (80-96); MEAN PLT VOLUME 8.2 fl (7.5-11.1); MONO % 6.4 % (3.8-10.2); NEUT % 81.3 % (42.8-82.8); PLATELET COUNT 233 K/MM3 (134-434); RBC 4.26 M/mm3 (4.00-5.60); RDW 14.3 % (11.9-15.9); WHITE BLOOD COUNT 9.9 K/mm3 (4.0-10.0)
[2020-07-15 01:55] LABS: CHLORIDE 104 mmol/L (98-107); SODIUM 138 mmol/L (136-145)
[2020-07-15 01:59] LABS: ALBUMIN 3.3 g/dl (3.4-5.0); ANION GAP 8 MMOL/L (8-16); CALCIUM 7.7 mg/dL (8.5-10.1); CO2 26 mmol/L (21-32); GLUCOSE,RANDOM 90 mg/dL (74-106)
[2020-07-15 02:00] LABS: BLOOD UREA NITROGEN 12.8 mg/dL (7-18)
[2020-07-15 02:02] LABS: CREATININE 1.2 mg/dL (0.55-1.3); SGOT/AST 33 U/L (15-37); SGPT/ALT 25 U/L (13-61)
[2020-07-15 02:04] LABS: BILIRUBIN,TOTAL 0.5 mg/dL (0.2-1); TOT PROT 7.3 g/dl (6.4-8.2)
[2020-07-15 02:05] LABS: ALK PHOS 53 U/L (45-117)
[2020-07-15] MEDS ORDERED: AZITHROMYCIN 500 MG TABLET PO ONE (02:33)
[2020-07-15] MEDS ORDERED: AZITHROMYCIN 250 MG TABLET ONE (02:44)
[2020-07-15 04:06] VITALS: BP 141/89; PULSE 86; TEMP 99
== END 2020-07-15 06:54 | disposition home or self-care (01) ==
LOC: JER 20:16
DX: R11.2 Nausea with vomiting, unspecified (principal); Z11.52 Encounter for screening for COVID-19
CPT/HCPCS: 36415; 71045-TC-FY; 80053; 80307; 82272; 83690; 85025; 86593; 86780; 87804; 99284-25; C9803; U0003